=== PATIENT | female | born 1950 | race Caucasian/White ===

== ENCOUNTER → 2018-06-16 14:56 | Outpatient (CLI) | payer MEDICARE, OTHER, SELFPAY ==
--- NOTE | 2018-06-16 14:59 | DI.RAD.S_ITS ---
PROCEDURE: XR CHEST 2V INDICATIONS: chronic cough TECHNIQUE: 2 views of the chest were acquired. COMPARISON: [facility], , CHEST 2 VIEW, 12/06/2012, 16:40. FINDINGS: Surgical changes and devices: None. Lungs and pleura: No pleural effusions or pneumothorax. Lungs are clear. Mediastinum: Mediastinal contours are normal. Heart size is normal. Bones and chest wall: No suspicious bony abnormalities. Soft tissues appear unremarkable. IMPRESSION: No acute cardiopulmonary pathology. Dictated by: Teto Merino M.D. on 06/16/2018 at 15:15 Approved by: Teto Merino M.D. on 06/16/2018 at 15:16
== END ==
PROVIDERS: PCP Family Medicine; Visit Provider Internal Medicine
DX: R05 Cough (principal)
CPT/HCPCS: 71046

== ENCOUNTER → 2018-06-24 10:22 | Outpatient (CLI) | payer MEDICARE, OTHER, SELFPAY ==
[2018-06-24 11:44] LABS: Add Manual Diff / Slide Review NO; Basophils Percent Auto 0.2 % (0-2); Eosinophils Percent Auto 3.2 % (2-4); Hematocrit 41.8 % (36-46); Hemoglobin 14.5 g/dL (12.0-16.0); Lymphocytes Percent Auto 32.1 % (25-40); Mean Corpuscular HGB Conc 34.7 % (30-36); Mean Corpuscular Hemoglobin 31.1 PG (26-34); Mean Corpuscular Volume 89.6 fL (80-100); Monocytes Percent Auto 8.2 % (3-14); Neutrophils Absolute Auto 2500 /uL (3000-5900); Neutrophils Percent Auto 56.3 % (50-75); Platelet Count 214 X10^3/uL (150-400); Red Blood Cell Count 4.67 X10^6/uL (4.0-5.2); Red Cell Distribution Width 13.3 % (11.6-14.8); White Blood Cell Count 4.4 X10^3/uL (4.5-11.0)
[2018-06-24 12:15] LABS: Alanine Aminotransferase 51 IU/L (9-52); Albumin 4.3 g/dL (3.5-5.0); Albumin Globulin Ratio 1.7 (1.0-2.8); Alkaline Phosphatase 56 U/L (38-126); Aspartate Aminotransferase 36 IU/L (14-36); BUN Creatinine Ratio 36.7 (6-22); Bilirubin Total 0.5 mg/dL (0.2-1.3); Blood Urea Nitrogen 33 mg/dL (7-17); Calcium 9.5 mg/dL (8.4-10.2); Carbon Dioxide 31 mmol/L (22-32); Chloride 101 mmol/L (98-107); Cholesterol 168 mg/dL (140-199); Estimated Glomerular Filt Rate > 60.0 mL/min (>60); Globulin 2.5 g/dL (1.7-4.1); Glucose 92 mg/dL (80-110); HDL Cholesterol 54 mg/dL (40-60); HEMOLYSIS < 15 (0-50); LDL Cholesterol Calculated 104 mg/dL (<100); Potassium 4.9 mmol/L (3.4-5.1); Sodium 140 mmol/L (137-145); Total Protein 6.8 g/dL (6.3-8.2); Triglycerides 52 mg/dL (35-150)
[2018-06-24 12:44] LABS: TSH w/ Reflex to FT4 2.55 uIU/mL (0.47-4.68)
== END ==
PROVIDERS: PCP Family Medicine; Visit Provider Family Medicine
DX: Z00.00 Encounter for general adult medical examination without abnormal findings (principal)
CPT/HCPCS: 36415; 80053; 80061; 84443; 85025

== ENCOUNTER → 2018-07-05 11:44 | Outpatient (CLI) | payer MEDICARE, OTHER, SELFPAY ==
--- NOTE | 2018-07-05 | DI.MG.S_ITS ---
BILATERAL DIGITAL SCREENING MAMMOGRAM 3D/2D WITH CAD: 07/05/2018 CLINICAL: Routine screening. Family history of breast cancer. Comparison is made to exams dated: 06/18/2017 mammogram, 08/04/2014 mammogram, and 08/03/2013 mammogram - [facility]. There are scattered fibroglandular elements in both breasts. Current study was also evaluated with a Computer Aided Detection (CAD) system. There are benign calcifications in the left breast. No significant masses, calcifications, or other findings are seen in either breast. There has been no significant interval change. IMPRESSION: BENIGN There is no mammographic evidence of malignancy. A 1 year screening mammogram is recommended. This exam was interpreted at Station ID: [id number]. NOTE: For mammograms, a report in lay terms will be sent to the patient. Approximately 15% of breast malignancies will not be visualized mammographically. In the management of a palpable breast mass, a negative mammogram must not discourage biopsy of a clinically suspicious lesion. Electronically Signed By: Carlitos otero/kaley:07/05/2018 20:49:51 letter sent: Normal Exam ACR BI-RADS Category 2: Benign Finding(s) 3342F
== END ==
PROVIDERS: PCP Family Medicine; Visit Provider Family Medicine
DX: Z12.31 Encounter for screening mammogram for malignant neoplasm of breast (principal); Z80.3 Family history of malignant neoplasm of breast
CPT/HCPCS: 77063; 77067

== ENCOUNTER → 2019-03-15 09:48 | Outpatient (CLI) | payer MEDICARE, OTHER, SELFPAY ==
[2019-03-15 11:34] LABS: Alanine Aminotransferase 65 IU/L (9-52); Albumin 4.1 g/dL (3.5-5.0); Albumin Globulin Ratio 1.7 (1.0-2.8); Alkaline Phosphatase 55 U/L (38-126); Aspartate Aminotransferase 46 IU/L (14-36); BUN Creatinine Ratio 36.3 (6-22); Bilirubin Total 0.4 mg/dL (0.2-1.3); Blood Urea Nitrogen 29 mg/dL (7-17); Calcium 9.3 mg/dL (8.4-10.2); Carbon Dioxide 28 mmol/L (22-32); Chloride 101 mmol/L (98-107); Cholesterol 124 mg/dL (140-199); Estimated Glomerular Filt Rate > 60.0 mL/min (>60); Globulin 2.4 g/dL (1.7-4.1); Glucose 80 mg/dL (80-110); HDL Cholesterol 39 mg/dL (40-60); HEMOLYSIS < 15 (0-50); LDL Cholesterol Calculated 77 mg/dL (<100); Potassium 4.4 mmol/L (3.4-5.1); Sodium 137 mmol/L (137-145); Total Protein 6.5 g/dL (6.3-8.2); Triglycerides 41 mg/dL (35-150)
[2019-03-15 11:41] LABS: Add Manual Diff / Slide Review NO; Basophils Absolute Auto 0 /uL (0-100); Basophils Percent Auto 0.3 % (0-2); Eosinophils Absolute Auto 300 /uL (0-450); Eosinophils Percent Auto 7.6 % (2-4); Hematocrit 42.2 % (36-46); Hemoglobin 14.3 g/dL (12.0-16.0); Lymphocytes Absolute Auto 1300 /uL (1100-4500); Lymphocytes Percent Auto 37.5 % (25-40); Mean Corpuscular HGB Conc 33.9 % (30-36); Mean Corpuscular Hemoglobin 30.3 PG (26-34); Mean Corpuscular Volume 89.5 fL (80-100); Monocytes Absolute Auto 300 /uL (0-900); Monocytes Percent Auto 9.2 % (3-14); Neutrophils Absolute Auto 1500 /uL (1500-7000); Neutrophils Percent Auto 45.4 % (50-75); Platelet Count 195 X10^3/uL (150-400); Red Blood Cell Count 4.71 X10^6/uL (4.0-5.2); Red Cell Distribution Width 13.6 % (11.6-14.8); White Blood Cell Count 3.4 X10^3/uL (4.5-11.0)
[2019-03-15 12:09] LABS: TSH w/ Reflex to FT4 1.63 uIU/mL (0.47-4.68)
== END ==
PROVIDERS: PCP Family Medicine; Visit Provider Family Medicine
DX: I10 Essential (primary) hypertension (principal); Z00.00 Encounter for general adult medical examination without abnormal findings; Z13.6 Encounter for screening for cardiovascular disorders
CPT/HCPCS: 36415; 80053; 80061; 84443; 85025

== ENCOUNTER → 2019-07-07 10:49 | Outpatient (CLI) | payer MEDICARE, OTHER, SELFPAY ==
--- NOTE | 2019-07-07 | DI.MG.S_ITS ---
BILATERAL DIGITAL SCREENING MAMMOGRAM 3D/2D WITH CAD: 07/07/2019 CLINICAL: Routine screening. Family history of breast cancer. Comparison is made to exams dated: 07/05/2018 mammogram, 06/24/2017 mammogram, 06/18/2017 mammogram, and 08/04/2014 mammogram - [facility]. There are scattered fibroglandular elements in both breasts. Current study was also evaluated with a Computer Aided Detection (CAD) system. There are benign calcifications in the left breast. No significant masses, calcifications, or other findings are seen in either breast. There has been no significant interval change. IMPRESSION: There is no mammographic evidence of malignancy. A 1 year screening mammogram is recommended. This exam was interpreted at Station ID: [id number]. NOTE: For mammograms, a report in lay terms will be sent to the patient. Approximately 15% of breast malignancies will not be visualized mammographically. In the management of a palpable breast mass, a negative mammogram must not discourage biopsy of a clinically suspicious lesion. Electronically Signed By: Danish pratt/kaley:07/07/2019 11:21:08 letter sent: Normal Exam ACR BI-RADS Category 2: Benign Finding(s) 3342F
== END ==
PROVIDERS: PCP Family Medicine; Visit Provider Family Medicine
DX: Z12.31 Encounter for screening mammogram for malignant neoplasm of breast (principal); Z80.3 Family history of malignant neoplasm of breast
CPT/HCPCS: 77063; 77067

== ENCOUNTER → 2020-05-11 09:35 | Outpatient (CLI) | payer MEDICARE, OTHER, SELFPAY ==
[2020-05-11 10:38] LABS: Add Manual Diff / Slide Review NO; Basophils Absolute Auto 0 /uL (0-100); Basophils Percent Auto 0.3 % (0-2); Eosinophils Absolute Auto 100 /uL (0-450); Eosinophils Percent Auto 3.4 % (2-4); Hematocrit 42.7 % (36-46); Hemoglobin 14.4 g/dL (12.0-16.0); Lymphocytes Absolute Auto 1200 /uL (1100-4500); Lymphocytes Percent Auto 30.3 % (25-40); Mean Corpuscular HGB Conc 33.8 % (30-36); Mean Corpuscular Hemoglobin 30.4 PG (26-34); Mean Corpuscular Volume 89.9 fL (80-100); Monocytes Absolute Auto 300 /uL (0-900); Monocytes Percent Auto 8.3 % (3-14); Neutrophils Absolute Auto 2400 /uL (1500-7000); Neutrophils Percent Auto 57.7 % (50-75); Platelet Count 214 X10^3/uL (150-400); Red Blood Cell Count 4.74 X10^6/uL (4.0-5.2); Red Cell Distribution Width 13.7 % (11.6-14.8); White Blood Cell Count 4.1 X10^3/uL (4.5-11.0)
[2020-05-11 10:54] LABS: Alanine Aminotransferase 95 IU/L (<35); Albumin 4.3 g/dL (3.5-5.0); Albumin Globulin Ratio 1.9 (1.0-2.8); Alkaline Phosphatase 47 U/L (38-126); Aspartate Aminotransferase 51 IU/L (14-36); BUN Creatinine Ratio 26.6 (6-22); Bilirubin Total 0.7 mg/dL (0.2-1.3); Blood Urea Nitrogen 21 mg/dL (7-17); Calcium 9.7 mg/dL (8.4-10.2); Carbon Dioxide 30 mmol/L (22-32); Chloride 105 mmol/L (98-107); Cholesterol 133 mg/dL (140-199); Estimated Glomerular Filt Rate > 60.0 mL/min (>60); Globulin 2.3 g/dL (1.7-4.1); Glucose 91 mg/dL (80-110); HDL Cholesterol 41 mg/dL (40-60); HEMOLYSIS < 15 (0-50); LDL Cholesterol Calculated 84 mg/dL (<100); Potassium 4.1 mmol/L (3.4-5.1); Sodium 139 mmol/L (137-145); Total Protein 6.6 g/dL (6.3-8.2); Triglycerides 40 mg/dL (35-150)
== END ==
PROVIDERS: PCP Family Medicine; Referring Provider Family Medicine; Visit Provider Family Medicine
DX: E78.00 Pure hypercholesterolemia, unspecified (principal); N39.41 Urge incontinence
CPT/HCPCS: 36415; 80053; 80061; 84443; 85025

== ENCOUNTER → 2020-07-13 10:45 | Outpatient (CLI) | payer MEDICARE, OTHER, SELFPAY ==
--- NOTE | 2020-07-13 11:00 | DI.MG.S_ITS ---
Patient Name: JENNIFER URIAS date: 1950 Sex: F Attending Physician: Tavo Indications: Date: 07/13/2020 10:53 At the request of: ROEL ALVARADO Procedure: MM screening mammo BI BILATERAL DIGITAL SCREENING MAMMOGRAM 3D/2D WITH CAD: 07/13/2020 CLINICAL: Routine screening. Family history of breast cancer. Comparison is made to exams dated: 07/07/2019 mammogram, 07/05/2018 mammogram, and 06/18/2017 mammogram - [facility]. There are scattered fibroglandular elements in both breasts. Current study was also evaluated with a Computer Aided Detection (CAD) system. There are benign calcifications in the left breast. No significant masses, calcifications, or other findings are seen in either breast. There has been no significant interval change. IMPRESSION: BENIGN There is no mammographic evidence of malignancy. A 1 year screening mammogram is recommended. This exam was interpreted at Station ID: [id number]. NOTE: For mammograms, a report in lay terms will be sent to the patient. Approximately 15% of breast malignancies will not be visualized mammographically. In the management of a palpable breast mass, a negative mammogram must not discourage biopsy of a clinically suspicious lesion. Electronically Signed By: Danish pratt/kaley:07/13/2020 12:00:40 letter sent: Normal Exam ACR BI-RADS Category 2: Benign Finding(s) 3342F
== END ==
PROVIDERS: PCP Family Medicine; Referring Provider Family Medicine; Visit Provider Family Medicine
DX: Z12.31 Encounter for screening mammogram for malignant neoplasm of breast (principal); Z80.3 Family history of malignant neoplasm of breast
CPT/HCPCS: 77063; 77067

== ENCOUNTER → 2020-08-10 09:04 | Outpatient (CLI) | payer MEDICARE, OTHER, SELFPAY ==
--- NOTE | 2020-08-10 09:06 | DI.US.S_ITS ---
PROCEDURE: US ABDOMEN COMPLETE INDICATIONS: ELEVATED LIVER FUNCTION TESTS TECHNIQUE: Real-time scanning was performed of the abdominal and retroperitoneal organs, with image documentation. COMPARISON: None. FINDINGS: Liver: Liver is normal in size and homogeneous in echotexture. Gallbladder: No findings of gallstones or sludge are seen. The gallbladder wall is not thickened, measuring 3 mm or less. No specific pericholecystic fluid is seen. The sonographic Mercedes sign is negative. Biliary ducts: Intrahepatic bile ducts are non-dilated. Extrahepatic bile duct caliber measures approximately 1 mm. Portions of the common bile duct are not well seen, secondary to bowel gas. Normal is 6-7 mm or less in diameter, or 10 mm or less post-cholecystectomy. Pancreas: Visualized portions of the pancreas are sonographically normal. Spleen: Spleen is normal in size and homogeneous in echotexture. Kidneys: Kidneys are normal in size and echotexture. Right kidney measures 10.7 cm long; left kidney measures 9.2 cm long. No hydronephrosis or nephrolithiasis. No solid masses. Multiple bilateral simple appearing renal cysts are seen. The largest on the right is seen superiorly and measures to 1 cm. Largest on the left is seen superiorly and measures up to 1.8 cm. Aorta: Visualized aorta is normal in caliber at less than 3 cm. Iliacs: Proximal common iliac arteries are normal in caliber at less than 2.5 cm. IVC: Intrahepatic inferior vena cava is patent. Miscellaneous: No free abdominal fluid. IMPRESSION: Normal appearing liver by ultrasound. The gallbladder demonstrates a normal sonographic appearance. No biliary dilatation is seen. Multiple simple appearing bilateral renal cysts are seen. Dictated by: Jj Chavez M.D. on 08/10/2020 at 9:35 Approved by: Jj Chavez M.D. on 08/10/2020 at 9:37
[2020-08-10 10:49] LABS: Erythrocyte Sedimentation Rate 2 MM/HR (0-20)
[2020-08-10 11:06] LABS: C-Reactive Protein Quant < 0.5 mg/dL (<1.0)
[2020-08-10 11:34] LABS: Ferritin 123 ng/mL (11-264)
[2020-08-11 04:37] LABS: HBsAg Screen Negative (Negative); Hepatitis A Antibody IgM Negative (Negative); Hepatitis B Core Antibody IgM Negative (Negative); Hepatitis C Antibody <0.1 s/co ratio (0.0-0.9)
[2020-08-13 12:36] LABS: ANA Screen, IFA Negative (.)
== END ==
PROVIDERS: PCP Family Medicine; Referring Provider Family Medicine; Visit Provider Family Medicine
DX: R79.89 Other specified abnormal findings of blood chemistry (principal); N28.1 Cyst of kidney, acquired
CPT/HCPCS: 36415; 76700; 80074; 82728; 85651; 86038; 86140

== ENCOUNTER → 2020-10-15 11:25 | Outpatient (CLI) | payer MEDICARE, OTHER, SELFPAY ==
[2020-10-15 13:08] LABS: COVID19 -Nasal RAPID Negative (Negative)
== END ==
PROVIDERS: PCP Family Medicine; Visit Provider Physician Assistant
DX: Z11.59 Encounter for screening for other viral diseases (principal)
CPT/HCPCS: 87635

== ENCOUNTER 2020-10-17 09:07 | Day surgery (SDC) | payer MEDICARE, OTHER, SELFPAY ==
--- NOTE | 2020-10-16 19:14 | PM.PREOP ---
Pre-operative Note COVID-19 COVID-19 status: Negative Interval Note History & Physical reviewed/Exam performed by Physician: Yes Changes to H&P: No
--- NOTE | 2020-10-16 20:09 | PM.OP.1 ---
Operative Date/Time/Diagnoses Date of procedure: 10/17/20 Time of procedure: 10:45 Procedure & Clinicians Procedure: Preoperative diagnoses: 1. Right significant nuclear sclerotic and cortical cataract. 2. Arthritis Postoperative diagnoses: 1. Cataract removed by phacoemulsification with placement of posterior chamber intraocular lens. Procedure: Phacoemulsification with posterior chamber intraocular lens implant Surgeon: Ciera Baker MD Complications: None Specimen: None Implant: [id number] Blood loss: None Anesthesia: Retrobulbar with monitored standby Description of procedure: Patient presents with a complaint of decreased vision due to cataract which is affecting activities of daily living distance and near. The patient wants surgery to improve vision. She understands the extra risk during the COVID-19 epidemic is tested negative for the virus preoperatively. She elects to proceed with surgery. She has discontinued her contacts prior to surgery. The patient was taken to the operating room and given IV sedation. A retrobulbar block consisting of 6 cc of 2% xylocaine without epinephrine mixed half and half with 0.5% Marcaine with 1 cc of hyaluronidase added is placed between the medial and lateral 1/3 of the inferior orbital rim. The eye is manually massaged for 30 sec, prepped using Betadine solution, and draped in the usual sterile fashion. Temporal approach was made, a 1 mm side-port incision was made 90? from the proposed clear corneal incision position. Phenylephrine 1.5% mixed with 1% xylocaine 0.2 cc was placed into the anterior chamber. Viscoat followed by Healon was then placed. A 2.6 mm clear incision with a 2.6 mm blade was placed. A 360 degree capsulorrhexis style capsulotomy was then performed with a cystitome needle on a Healon. Hydrodelineation and hydrodissection were performed. The phacoemulsification unit is introduced, and sculpting notice used to groove the central lens. It is then removed in chopping mode. Epi nucleus is removed with epinuclear mode and irrigation aspiration was used to remove the peripheral cortex. The posterior capsule is polished. The intraocular lens is selected, inspected, power confirmed, and placed in the posterior chamber. The wound was stromally hydrated and tested for leaks, there was none and it was left sutureless. Vigamox 0.1 cc was placed into the anterior chamber. Kenalog 0.2 cc was placed in the superior subconjunctival space. A drop of antibiotic and was placed and the eye was patched and shielded. The patient was stable and returned to the recovery room in excellent condition. Dictated by: Ciera Baker MD Copy to: [facility] Same procedure as scheduled: Yes
[2020-10-17] MEDS: PROPARACAINE 0.5% OPHTH SOL 2 DROPS EYE-OP (09:54)
[2020-10-17] MEDS: CATARACT EYE COMPOUND (10 DROPS/SYRINGE) 3 DROPS EYE-OP (09:55)
[2020-10-17 10:06] VITALS: BP 139/79; PULSE 60; RESP 16; TEMP 36.3; O2SAT 98
[2020-10-17] MEDS: MOXIFLOXACIN INJ 5 MG/ML VIAL EYE-OP (10:59)
[2020-10-17] MEDS: PHENYLEPHRINE/LIDOCAINE VIAL (OR) 0.2 ML EYE-OP (10:59)
[2020-10-17] MEDS: CHONDROIDTIN/SOD HYALURONATE 1.05 ML SYRINGE INTRAOCULA (10:59)
[2020-10-17] MEDS: HYALURONATE SODIUM 10 MG/ML SYRINGE INJ (10:59)
[2020-10-17] MEDS: ERYTHROMYCIN OPHTH 1 GM OINT 1 APPLIC EYE-RIGHT (10:59)
[2020-10-17] MEDS: TRIAMCINOLONE 50 MG/5 ML VIAL INJ (11:00)
[2020-10-17] MEDS: BALANCED SALT IRRIG SOLN NO.2 500 ML, EPINEPHrine 1 MG IRR (11:00)
[2020-10-17] MEDS: LIDOCAINE 2% 4 ML, BUPIVACAINE 0.5% (PF) 4 ML, HYALURONIDASE 150 UNIT INJ (11:00)
[2020-10-17 11:25] VITALS: BP 135/73; PULSE 58; RESP 17; TEMP 35.9; O2SAT 100
== END 2020-10-17 11:40 | disposition home or self-care (01) ==
LOC: OR 10:07
PROVIDERS: PCP Family Medicine; Referring Provider Ophthalmology; Visit Provider Ophthalmology
PROC: (CPT 66984; principal; 2020-10-17 10:45)
DX: H25.811 Combined forms of age-related cataract, right eye (principal)
CPT/HCPCS: 66984; J0171; J2704; J3301; J3470

== ENCOUNTER → 2020-10-29 09:29 | Outpatient (CLI) | payer MEDICARE, OTHER, SELFPAY ==
[2020-10-29 11:05] LABS: COVID19 -Nasal RAPID Negative (Negative)
== END ==
PROVIDERS: PCP Family Medicine; Visit Provider Physician Assistant
DX: Z01.812 Encounter for preprocedural laboratory examination (principal); Z20.828 Contact with and (suspected) exposure to other viral communicable diseases
CPT/HCPCS: 87635; C9803

== ENCOUNTER 2020-10-31 13:25 | Day surgery (SDC) | payer MEDICARE, OTHER, SELFPAY ==
--- NOTE | 2020-10-30 18:37 | PM.PREOP ---
Pre-operative Note COVID-19 COVID-19 status: Negative Interval Note History & Physical reviewed/Exam performed by Physician: Yes Changes to H&P: No
--- NOTE | 2020-10-31 08:14 | PM.OP.1 ---
Operative Date/Time/Diagnoses Date of procedure: 10/31/20 Time of procedure: 15:15 Procedure & Clinicians Procedure: Preoperative diagnoses: 1. Left Nuclear sclerotic and cortical cataract 2. Arthritis with neck pain 2. Astigmatism which is to be corrected with a toric intraocular lens implant. Postoperative diagnoses: 1. Cataract removal with phacoemulsification with toric posterior chamber intraocular lens implant placed. Procedure: Phacoemulsification with posterior chamber toric intraocular lens implant. Surgeon: Ciera Baker MD Complications: None Specimen: None Implant: [id number] axis 151, myopic target Blood loss: None Anesthesia: Retrobulbar with monitored standby Description of procedure: Patient presents with a complaint of decreased vision due to cataract which is affecting activities of daily living. The patient wants surgery to improve vision and astigmatism. She wants a computer distance target as she was wearing monovision contacts. The patient was taken to the operating room and proparacaine drops placed. Indelible ink schneider were placed at the 90 and 180 degree meridian. The patient was placed on the operating room table and given IV sedation. A retrobulbar block insert consisting of 6 cc of 2% xylocaine without epinephrine mixed half and half with 0.5% Marcaine with 1 cc of hyaluronidase added is placed between the medial and lateral 1/3 of the inferior orbital rim. The eye is manually massaged for 30 sec, prepped using Betadine solution, and draped in the usual sterile fashion. Temporal approach was made, a 1 mm side-port incision was made 90? from the proposed corneal wound. Phenylephrine 1.5% mixed with 1% xylocaine 0.2 cc was placed into the anterior chamber. Viscoat followed by Karol was then placed. A 2.6 mm clear incision with a 2.6 mm blade was placed at the 170 degree meridian. A 360 degree capsulorrhexis style capsulotomy was then performed with a cystitome needle on a Healon. Hydrodelineation and hydrodissection were performed. The phacoemulsification unit is introduced, and sculpting used to groove the central lens. It is then removed in chopping mode. Epi nucleus is removed with epinuclear mode and irrigation aspiration was used to remove the peripheral cortex. The posterior capsule is polished. The intraocular lens is selected, inspected, power confirmed, and placed in the posterior chamber at the desired meridian 151 degree. The pupil was not constricted. The wound was stromally hydrated and tested for leaks, there was none and it was left sutureless. Vigamox 0.1 cc was placed into the anterior chamber. Kenalog 0.2 cc was placed in the superior subconjunctival space. A drop of antibiotic and was placed and the eye was patched and shielded. The patient was stable and returned to the recovery room in excellent condition. Dictated by: Ciera Baker MD Copy to: [facility] Same procedure as scheduled: Yes
[2020-10-31] MEDS: PROPARACAINE 0.5% OPHTH SOL 2 DROPS EYE-OP (13:55)
[2020-10-31 14:00] VITALS: BP 123/67; PULSE 65; RESP 18; TEMP 36.5; O2SAT 100; BMI 24.7
[2020-10-31] MEDS: CATARACT EYE COMPOUND (10 DROPS/SYRINGE) 3 DROPS EYE-OP (14:00)
[2020-10-31] MEDS: PHENYLEPHRINE/LIDOCAINE VIAL (OR) 0.2 ML EYE-OP (16:24)
[2020-10-31] MEDS: MOXIFLOXACIN INJ 5 MG/ML VIAL EYE-OP (16:25)
[2020-10-31] MEDS: LIDOCAINE 2% 4 ML, BUPIVACAINE 0.5% (PF) 4 ML, HYALURONIDASE 150 UNIT INJ (16:25)
[2020-10-31] MEDS: BALANCED SALT IRRIG SOLN NO.2 500 ML, EPINEPHrine 1 MG IRR (16:26)
[2020-10-31] MEDS: HYALURONATE SODIUM 10 MG/ML SYRINGE INJ (16:26)
[2020-10-31] MEDS: CHONDROIDTIN/SOD HYALURONATE 1.05 ML SYRINGE INTRAOCULA (16:26)
[2020-10-31] MEDS: TRIAMCINOLONE 50 MG/5 ML VIAL INJ (16:26)
[2020-10-31] MEDS: ERYTHROMYCIN OPHTH 1 GM OINT 1 APPLIC EYE-LEFT (16:27)
[2020-10-31 17:05] VITALS: BP 132/81; PULSE 58; RESP 14; TEMP 36.7; O2SAT 99
== END 2020-10-31 17:10 | disposition home or self-care (01) ==
LOC: OR 13:27
PROVIDERS: PCP Family Medicine; Referring Provider Family Medicine; Visit Provider Ophthalmology
PROC: (CPT 66984; principal; 2020-10-31 15:15)
DX: H25.812 Combined forms of age-related cataract, left eye (principal); H52.202 Unspecified astigmatism, left eye
CPT/HCPCS: 66984; J0171; J2250; J3010; J3301; J3470; V2787

== ENCOUNTER → 2020-11-13 10:02 | Outpatient (CLI) | payer MEDICARE, OTHER, SELFPAY ==
[2020-11-13 12:04] LABS: Alanine Aminotransferase 80 IU/L (<35); Albumin 3.9 g/dL (3.5-5.0); Albumin Globulin Ratio 1.6 (1.0-2.8); Alkaline Phosphatase 54 U/L (38-126); Aspartate Aminotransferase 40 IU/L (14-36); Bilirubin Total 0.7 mg/dL (0.2-1.3); Bilirubin Unconjugated 0.8 mg/dL (0.0-1.1); Globulin 2.4 g/dL (1.7-4.1); HEMOLYSIS < 15 (0-50); Total Protein 6.3 g/dL (6.3-8.2)
== END ==
PROVIDERS: PCP Family Medicine; Referring Provider Family Medicine; Visit Provider Family Medicine
DX: R74.8 Abnormal levels of other serum enzymes (principal)
CPT/HCPCS: 36415; 80076

== ENCOUNTER → 2021-05-29 11:16 | Outpatient (CLI) | payer MEDICARE, OTHER, SELFPAY ==
[2021-05-29 12:08] LABS: Alanine Aminotransferase 49 IU/L (<35); Albumin 4.2 g/dL (3.5-5.0); Albumin Globulin Ratio 1.8 (1.0-2.8); Alkaline Phosphatase 55 U/L (38-126); Aspartate Aminotransferase 41 IU/L (14-36); Bilirubin Total 0.5 mg/dL (0.2-1.3); Bilirubin Unconjugated 0.5 mg/dL (0.0-1.1); Globulin 2.3 g/dL (1.7-4.1); HEMOLYSIS < 15 (0-50); Total Protein 6.5 g/dL (6.3-8.2)
== END ==
PROVIDERS: PCP Family Medicine; Referring Provider Family Medicine; Visit Provider Family Medicine
DX: R74.8 Abnormal levels of other serum enzymes (principal)
CPT/HCPCS: 36415; 80076

== ENCOUNTER → 2021-07-23 11:03 | Outpatient (CLI) | payer MEDICARE, OTHER, SELFPAY ==
--- NOTE | 2021-07-23 | DI.MG.S_ITS ---
BILATERAL DIGITAL SCREENING MAMMOGRAM 3D/2D WITH CAD: 07/23/2021 CLINICAL: Routine screening. Family history of breast cancer. Comparison is made to exams dated: 07/13/2020 mammogram, 07/07/2019 mammogram, and 07/05/2018 mammogram - [facility]. There are scattered fibroglandular elements in both breasts. Current study was also evaluated with a Computer Aided Detection (CAD) system. There are benign calcifications in the left breast. No significant masses, calcifications, or other findings are seen in either breast. There has been no significant interval change. IMPRESSION: BENIGN There is no mammographic evidence of malignancy. A 1 year screening mammogram is recommended. This exam was interpreted at Station ID: [id number]. NOTE: For mammograms, a report in lay terms will be sent to the patient. Approximately 15% of breast malignancies will not be visualized mammographically. In the management of a palpable breast mass, a negative mammogram must not discourage biopsy of a clinically suspicious lesion. Electronically Signed By: Merrill grigsby/kaley:07/23/2021 11:41:15 letter sent: Normal Exam ACR BI-RADS Category 2: Benign Finding(s) 3342F
== END ==
PROVIDERS: PCP Family Medicine; Referring Provider Family Medicine; Visit Provider Family Medicine
DX: Z12.31 Encounter for screening mammogram for malignant neoplasm of breast (principal); Z80.3 Family history of malignant neoplasm of breast
CPT/HCPCS: 77063; 77067

== ENCOUNTER 2021-11-19 11:31 | Emergency (ER) | payer MEDICARE, OTHER, SELFPAY ==
[2021-11-19] VITALS (27 sets, daily range): BP systolic 105–144; BP diastolic 52–71; PULSE 83–99; RESP 14–37; TEMP 36.7; O2SAT 79–100; BMI 28.7
[2021-11-19 13:12] LABS: COVID19 -Nasal RAPID Negative (Negative)
--- NOTE | 2021-11-19 15:06 | DI.RAD.S_ITS ---
PROCEDURE: XR CHEST 2V INDICATIONS: shortness of breath TECHNIQUE: 2 views of the chest were acquired. COMPARISON: [facility], CR, XR CHEST 2V, 06/16/2018, 14:39. FINDINGS: Surgical changes and devices: None. Lungs and pleura: Lungs are clear. No pleural effusions or pneumothorax. Mediastinum: Mediastinal contours are normal. Heart size is normal. Bones and chest wall: No suspicious bony abnormalities. Soft tissues appear unremarkable. IMPRESSION: No acute cardiopulmonary abnormalities or focal airspace disease. Dictated by: Dainsh Bhandari M.D. on 11/19/2021 at 16:00 Approved by: Danish Bhandari M.D. on 11/19/2021 at 16:01
[2021-11-19 15:36] LABS: Hematocrit 29.1 % (36-46); Hemoglobin 10.3 g/dL (12.0-16.0); Mean Corpuscular HGB Conc 35.4 % (30-36); Mean Corpuscular Hemoglobin 36.1 PG (26-34); Mean Corpuscular Volume 101.8 fL (80-100); Platelet Count 81 X10^3/uL (150-400); Red Blood Cell Count 2.86 X10^6/uL (4.0-5.2); Red Cell Distribution Width 16.2 % (11.6-14.8); White Blood Cell Count 7.7 X10^3/uL (4.5-11.0)
[2021-11-19 15:37] LABS: Alanine Aminotransferase 97 IU/L (<35); Albumin Globulin Ratio 1.3 (1.0-2.8); Alkaline Phosphatase 79 U/L (38-126); Aspartate Aminotransferase 94 IU/L (14-36); BUN Creatinine Ratio 27.8 (6-22); Bilirubin Total 1.5 mg/dL (0.2-1.3); Blood Urea Nitrogen 22 mg/dL (7-17); Carbon Dioxide 25 mmol/L (22-32); Chloride 94 mmol/L (98-107); Estimated Glomerular Filt Rate > 60.0 mL/min (>60); Globulin 3.1 g/dL (1.7-4.1); Glucose 127 mg/dL (80-110); HEMOLYSIS < 15 (0-50); Potassium 3.5 mmol/L (3.4-5.1); Sodium 128 mmol/L (137-145); Total Protein 7.1 g/dL (6.3-8.2)
[2021-11-19 15:38] LABS: Add Manual Diff / Slide Review YES
[2021-11-19 15:38] LABS: Creatine Kinase 254 U/L (30-135); Lactate (Lactic Acid) 1.4 mmol/L (0.7-2.1); Lipase 35 U/L (23-300)
[2021-11-19 15:49] LABS: NT-proBNP (BNP-Adult 18+) 2960 pg/mL (<125)
[2021-11-19 15:53] LABS: CKMB % Relative Index 0.8 % (1.5-5.0); Creatine Kinase MB 2.13 ng/mL (<2.37)
--- NOTE | 2021-11-19 16:00 | ED_ITS ---
HPI - General Adult <Lashno Morocho MD - Last Filed: 12/08/21 13:32> General Chief complaint: Dizziness Stated complaint: Trouble walking, dizzy Time Seen by Provider: 11/19/21 16:00 Source: patient Mode of arrival: Ambulatory History of Present Illness HPI narrative: 71-year-old woman without significant medical history went to bed last night and became significantly weak with a bit of shortness of breath. She complains that her legs were so weak she had difficulty walking to the bathroom. When she did get to the bathroom she ended up slumping to the floor and spent the majority of the evening on the floor in the bathroom still complaining of mild dyspnea weakness enough that her legs would not hold her up but not noticing chest pain or palpitations. Her friend insisted that she come into the emergency room today and she notes that she has not had any recent fevers, cough, chills. She has had no exertional dyspnea, no orthopnea, no lower extremity edema no recent syncopal episodes. She has had no vomiting, diarrhea abdominal pain. No focal neurologic findings and no headaches. Related Data Home Medications Medication Instructions Recorded Confirmed mirabegron 50 mg tablet,extended 50 mg PO BEDTIME 11/19/21 11/25/21 release 24 hr (Myrbetriq) colchicine 0.6 mg tablet 0.6 mg PO BID 11/25/21 11/25/21 cyclobenzaprine 10 mg tablet 10 mg PO BEDTIME 11/25/21 11/25/21 famotidine 20 mg tablet 20 mg PO BID 11/25/21 11/25/21 Previous Rx's Medication Instructions Recorded ibuprofen 800 mg tablet 800 mg PO TID #90 tab 11/29/21 Allergies Allergy/AdvReac Type Severity Reaction Status Date / Time No Known Drug Allergies Allergy Verified 11/25/21 10:35 Review of Systems <Lashon Morocho MD - Last Filed: 12/08/21 13:32> Review of Systems Narrative: Remainder of complete review of systems is otherwise unremarkable except for that included in the HPI. Patient History <Lashon Morocho MD - Last Filed: 12/08/21 13:32> Medical History (Updated 12/05/21 @ 00:01 by ) Chicken pox (~1957) History of urinary incontinence (~1991) Measles (~1953) Osteoarthritis (~1999) Plantar warts (~1960) Vision disorder Surgical History (Updated 11/27/21 @ 16:50 by Stephon Ferguson MD) Anesthesia History of tonsillectomy (~1953) Status post arthroscopy (~1991) Status post breast reduction Family History Father Cancer Grandmother Cancer Mother Age: 99 Mental health problem Macular degeneration Grandfather Heart disease Grandmother Stroke Family/Other Ovarian cancer Colon cancer Social History marital status: household members: none Smoking Status: Never smoker alcohol intake: current substance use type: does not use Smoking Status: Never smoker alcohol intake frequency: 0-2 drinks per day Substance Use Type: does not use Exam <Lashon Morocho MD - Last Filed: 12/08/21 13:32> Initial Vital Signs Initial Vital Signs: Vital Signs Temperature 98.1 F 11/19/21 11:50 Pulse Rate 99 H 11/19/21 11:50 Respiratory Rate 14 11/19/21 11:50 Blood Pressure 119/67 11/19/21 11:50 Pulse Oximetry 100 11/19/21 11:50 General: Healthy appearing, in no acute distress. Able to give a complete and coherent history. Well-nourished well-developed HEENT: Moist mucous membranes, normal sclera with reactive pupils, Neck: No JVD, supple Respiratory: Lungs are clear to auscultation, no wheezing no rales no rhonchi. Full and symmetrical air movement Cardiac: Regular rate and rhythm no murmurs no bruits Abdomen: Soft, nontender, good bowel tones, no flank pain Skin: Warm and dry, no rashes Neurologic: Grossly neurologically intact with no obvious asymmetries or abnormalities Extremities: No trauma, well perfused Psych: Cooperative, appropriate insight and affect <Edward Adams DO - Last Filed: 11/23/21 18:06> Initial Vital Signs Initial Vital Signs: Vital Signs Temperature 98.1 F 11/19/21 11:50 Pulse Rate 99 H 11/19/21 11:50 Respiratory Rate 14 11/19/21 11:50 Blood Pressure 119/67 11/19/21 11:50 Pulse Oximetry 100 11/19/21 11:50 <Donovan Nazario DO - Last Filed: 11/20/21 18:16> Initial Vital Signs Initial Vital Signs: Vital Signs Temperature 98.1 F 11/19/21 11:50 Pulse Rate 99 H 11/19/21 11:50 Respiratory Rate 14 11/19/21 11:50 Blood Pressure 119/67 11/19/21 11:50 Pulse Oximetry 100 11/19/21 11:50 Course <Lashon Morocho MD - Last Filed: 12/08/21 13:32> Orders Ordered: Discontinued Medications Aspirin (Aspirin 81 Mg Chew Tab) 324 mg PO NOW ONE Stop: 11/19/21 18:28 Last Admin: 11/19/21 18:39 Dose: 324 mg Documented by: BETTINA Furosemide (Furosemide 40 Mg/4 Ml Vial) 40 mg IV NOW ONE Stop: 11/19/21 19:42 Last Admin: 11/19/21 19:50 Dose: 40 mg Documented by: BETTINA Heparin Sodium (Porcine) (Heparin 5,000 Unit/Ml Vial) 5,000 unit IV NOW ONE Stop: 11/19/21 15:58 Last Admin: 11/19/21 16:09 Dose: 5,000 unit Documented by: BETTINA Heparin Sodium/Dextrose (Heparin Drip) 25,000 unit in 500 mls @ 17.636 mls/hr IV CONT KELSI; Protocol Last Admin: 11/20/21 15:59 Dose: 12.66 units/kg/hr, 18.6 mls/hr Documented by: Titration: 11/20/21 15:59 Dose: 12.66 units/kg/hr, 18.6 mls/hr Documented by: Titration: 11/20/21 05:03 Dose: 12.66 units/kg/hr, 18.6 mls/hr Documented by: Admin: 11/19/21 16:13 Dose: 12 units/kg/hr, 17.636 mls/hr Documented by: BETTINA Nitroglycerin (Nitroglycerin) 50 mg in 250 mls @ 4.5 mls/hr IV TITRATE KELSI; Protocol Last Titration: 11/20/21 16:31 Dose: 20 mcg/min, 6 mls/hr Documented by: Titration: 11/20/21 16:31 Dose: 66.67 mcg/min, 20 mls/hr Documented by: Admin: 11/20/21 16:15 Dose: 15 mcg/min, 4.5 mls/hr Documented by: BHAVESH Ketorolac Tromethamine (Ketorolac 30 Mg/Ml Vial) 15 mg IV NOW ONE Stop: 11/20/21 16:01 Last Admin: 11/20/21 16:03 Dose: 15 mg Documented by: BHAVESH Nitroglycerin (Nitroglycerin 0.4 Mg Sl Tab) 0.4 mg SL [id number] PRN PRN Reason: Chest Pain Last Admin: 11/20/21 16:05 Dose: 0.4 mg Documented by: Admin: 11/20/21 15:55 Dose: 0.4 mg Documented by: Admin: 11/20/21 15:48 Dose: 0.4 mg Documented by: BHAVESH Vital Signs Vital signs: Vital Signs - 8 hr 11/20/21 10:30 11/20/21 11:00 11/20/21 11:09 Pulse Rate 95 H 97 H 100 H Respiratory Rate 33 H 30 H 32 H Blood Pressure 107/54 L 142/58 H Pulse Oximetry 93 96 97 11/20/21 11:30 11/20/21 12:00 11/20/21 12:30 Pulse Rate 91 H 98 H 99 H Respiratory Rate 28 H 33 H 46 H Blood Pressure 121/57 L 113/62 105/62 Pulse Oximetry 95 94 95 11/20/21 13:00 11/20/21 13:01 11/20/21 13:07 Pulse Rate 103 H 111 H Respiratory Rate 37 H 39 H Blood Pressure 110/83 114/57 L Pulse Oximetry 93 95 11/20/21 13:30 11/20/21 14:00 11/20/21 15:00 Pulse Rate 98 H 95 H 93 H Respiratory Rate 31 H 41 H 21 Blood Pressure 117/57 L Pulse Oximetry 96 91 11/20/21 15:05 11/20/21 15:10 11/20/21 15:15 Pulse Rate 99 H 97 H 86 Respiratory Rate 37 H 31 H 26 H Blood Pressure Pulse Oximetry 94 93 93 11/20/21 15:20 11/20/21 15:25 11/20/21 15:30 Pulse Rate 87 86 91 H Respiratory Rate 26 H 27 H 20 Blood Pressure Pulse Oximetry 95 94 94 11/20/21 15:35 11/20/21 15:40 11/20/21 15:45 Pulse Rate 93 H 90 102 H Respiratory Rate 31 H 28 H 19 Blood Pressure 113/67 Pulse Oximetry 94 95 96 11/20/21 15:48 11/20/21 15:50 11/20/21 15:55 Pulse Rate 104 H 101 H 105 H Respiratory Rate 27 H 29 H Blood Pressure 113/78 108/56 L 108/56 L Pulse Oximetry 94 92 11/20/21 15:56 11/20/21 15:58 11/20/21 16:00 Pulse Rate 103 H 103 H Respiratory Rate 39 H 37 H 30 H Blood Pressure 96/55 L 98/49 L Pulse Oximetry 87 L 91 92 11/20/21 16:04 11/20/21 16:05 11/20/21 16:10 Pulse Rate 103 H 102 H 102 H Respiratory Rate 31 H 29 H 31 H Blood Pressure 101/50 L 98/50 L 107/55 L Pulse Oximetry 92 93 93 11/20/21 16:15 11/20/21 16:16 11/20/21 16:18 Pulse Rate 101 H 102 H 101 H Respiratory Rate 26 H 25 H 27 H Blood Pressure 106/55 L Pulse Oximetry 94 94 95 11/20/21 16:20 11/20/21 16:22 11/20/21 16:24 Pulse Rate 100 H 100 H 99 H Respiratory Rate 26 H 27 H 32 H Blood Pressure 88/55 L 91/47 L Pulse Oximetry 95 96 96 11/20/21 16:25 11/20/21 16:26 11/20/21 16:28 Pulse Rate 100 H 102 H 101 H Respiratory Rate 30 H 29 H 28 H Blood Pressure 92/53 L Pulse Oximetry 97 97 96 11/20/21 16:30 11/20/21 16:32 11/20/21 16:34 Pulse Rate 99 H 101 H 100 H Respiratory Rate 24 31 H 30 H Blood Pressure 98/49 L Pulse Oximetry 95 95 96 11/20/21 16:35 11/20/21 16:36 11/20/21 16:38 Pulse Rate 102 H 101 H 101 H Respiratory Rate 32 H 32 H 21 Blood Pressure 92/52 L Pulse Oximetry 95 96 95 11/20/21 16:40 11/20/21 16:42 Pulse Rate 100 H 98 H Respiratory Rate 33 H 30 H Blood Pressure 93/55 L Pulse Oximetry 95 94 <Edward Adams DO - Last Filed: 11/23/21 18:06> Orders Ordered: Discontinued Medications Aspirin (Aspirin 81 Mg Chew Tab) 324 mg PO NOW ONE Stop: 11/19/21 18:28 Last Admin: 11/19/21 18:39 Dose: 324 mg Documented by: BETTINA Furosemide (Furosemide 40 Mg/4 Ml Vial) 40 mg IV NOW ONE Stop: 11/19/21 19:42 Last Admin: 11/19/21 19:50 Dose: 40 mg Documented by: BETTINA Heparin Sodium (Porcine) (Heparin 5,000 Unit/Ml Vial) 5,000 unit IV NOW ONE Stop: 11/19/21 15:58 Last Admin: 11/19/21 16:09 Dose: 5,000 unit Documented by: BETTINA Heparin Sodium/Dextrose (Heparin Drip) 25,000 unit in 500 mls @ 17.636 mls/hr IV CONT KELSI; Protocol Last Admin: 11/20/21 15:59 Dose: 12.66 units/kg/hr, 18.6 mls/hr Documented by: Titration: 11/20/21 15:59 Dose: 12.66 units/kg/hr, 18.6 mls/hr Documented by: Titration: 11/20/21 05:03 Dose: 12.66 units/kg/hr, 18.6 mls/hr Documented by: Admin: 11/19/21 16:13 Dose: 12 units/kg/hr, 17.636 mls/hr Documented by: BETTINA Nitroglycerin (Nitroglycerin) 50 mg in 250 mls @ 4.5 mls/hr IV TITRATE KELSI; Protocol Last Titration: 11/20/21 16:31 Dose: 20 mcg/min, 6 mls/hr Documented by: Titration: 11/20/21 16:31 Dose: 66.67 mcg/min, 20 mls/hr Documented by: Admin: 11/20/21 16:15 Dose: 15 mcg/min, 4.5 mls/hr Documented by: BHAVESH Ketorolac Tromethamine (Ketorolac 30 Mg/Ml Vial) 15 mg IV NOW ONE Stop: 11/20/21 16:01 Last Admin: 11/20/21 16:03 Dose: 15 mg Documented by: BHAVESH Nitroglycerin (Nitroglycerin 0.4 Mg Sl Tab) 0.4 mg SL [id number] PRN PRN Reason: Chest Pain Last Admin: 11/20/21 16:05 Dose: 0.4 mg Documented by: Admin: 11/20/21 15:55 Dose: 0.4 mg Documented by: Admin: 11/20/21 15:48 Dose: 0.4 mg Documented by: BHAVESH Vital Signs Vital signs: Vital Signs - 8 hr 11/20/21 10:30 11/20/21 11:00 11/20/21 11:09 Pulse Rate 95 H 97 H 100 H Respiratory Rate 33 H 30 H 32 H Blood Pressure 107/54 L 142/58 H Pulse Oximetry 93 96 97 11/20/21 11:30 11/20/21 12:00 11/20/21 12:30 Pulse Rate 91 H 98 H 99 H Respiratory Rate 28 H 33 H 46 H Blood Pressure 121/57 L 113/62 105/62 Pulse Oximetry 95 94 95 11/20/21 13:00 11/20/21 13:01 11/20/21 13:07 Pulse Rate 103 H 111 H Respiratory Rate 37 H 39 H Blood Pressure 110/83 114/57 L Pulse Oximetry 93 95 11/20/21 13:30 11/20/21 14:00 11/20/21 15:00 Pulse Rate 98 H 95 H 93 H Respiratory Rate 31 H 41 H 21 Blood Pressure 117/57 L Pulse Oximetry 96 91 11/20/21 15:05 11/20/21 15:10 11/20/21 15:15 Pulse Rate 99 H 97 H 86 Respiratory Rate 37 H 31 H 26 H Blood Pressure Pulse Oximetry 94 93 93 11/20/21 15:20 11/20/21 15:25 11/20/21 15:30 Pulse Rate 87 86 91 H Respiratory Rate 26 H 27 H 20 Blood Pressure Pulse Oximetry 95 94 94 11/20/21 15:35 11/20/21 15:40 11/20/21 15:45 Pulse Rate 93 H 90 102 H Respiratory Rate 31 H 28 H 19 Blood Pressure 113/67 Pulse Oximetry 94 95 96 11/20/21 15:48 11/20/21 15:50 11/20/21 15:55 Pulse Rate 104 H 101 H 105 H Respiratory Rate 27 H 29 H Blood Pressure 113/78 108/56 L 108/56 L Pulse Oximetry 94 92 11/20/21 15:56 11/20/21 15:58 11/20/21 16:00 Pulse Rate 103 H 103 H Respiratory Rate 39 H 37 H 30 H Blood Pressure 96/55 L 98/49 L Pulse Oximetry 87 L 91 92 11/20/21 16:04 11/20/21 16:05 11/20/21 16:10 Pulse Rate 103 H 102 H 102 H Respiratory Rate 31 H 29 H 31 H Blood Pressure 101/50 L 98/50 L 107/55 L Pulse Oximetry 92 93 93 11/20/21 16:15 11/20/21 16:16 11/20/21 16:18 Pulse Rate 101 H 102 H 101 H Respiratory Rate 26 H 25 H 27 H Blood Pressure 106/55 L Pulse Oximetry 94 94 95 11/20/21 16:20 11/20/21 16:22 11/20/21 16:24 Pulse Rate 100 H 100 H 99 H Respiratory Rate 26 H 27 H 32 H Blood Pressure 88/55 L 91/47 L Pulse Oximetry 95 96 96 11/20/21 16:25 11/20/21 16:26 11/20/21 16:28 Pulse Rate 100 H 102 H 101 H Respiratory Rate 30 H 29 H 28 H Blood Pressure 92/53 L Pulse Oximetry 97 97 96 11/20/21 16:30 11/20/21 16:32 11/20/21 16:34 Pulse Rate 99 H 101 H 100 H Respiratory Rate 24 31 H 30 H Blood Pressure 98/49 L Pulse Oximetry 95 95 96 11/20/21 16:35 11/20/21 16:36 11/20/21 16:38 Pulse Rate 102 H 101 H 101 H Respiratory Rate 32 H 32 H 21 Blood Pressure 92/52 L Pulse Oximetry 95 96 95 11/20/21 16:40 11/20/21 16:42 Pulse Rate 100 H 98 H Respiratory Rate 33 H 30 H Blood Pressure 93/55 L Pulse Oximetry 95 94 <Donovan Nazario DO - Last Filed: 11/20/21 18:16> Course Course Narrative: 0700 - (SHOSHANA) -patient received in sign-out from Dr. Adams. I performed independent history and physical exam. No significant change noted. Patient feels a bit dizzy and weak, this is how she has felt. Cardio ([facility]) has accepted, but currently no beds available Orders Ordered: Discontinued Medications Aspirin (Aspirin 81 Mg Chew Tab) 324 mg PO NOW ONE Stop: 11/19/21 18:28 Last Admin: 11/19/21 18:39 Dose: 324 mg Documented by: BETTINA Furosemide (Furosemide 40 Mg/4 Ml Vial) 40 mg IV NOW ONE Stop: 11/19/21 19:42 Last Admin: 11/19/21 19:50 Dose: 40 mg Documented by: BETTINA Heparin Sodium (Porcine) (Heparin 5,000 Unit/Ml Vial) 5,000 unit IV NOW ONE Stop: 11/19/21 15:58 Last Admin: 11/19/21 16:09 Dose: 5,000 unit Documented by: BETTINA Heparin Sodium/Dextrose (Heparin Drip) 25,000 unit in 500 mls @ 17.636 mls/hr IV CONT KELSI; Protocol Last Admin: 11/20/21 15:59 Dose: 12.66 units/kg/hr, 18.6 mls/hr Documented by: Titration: 11/20/21 15:59 Dose: 12.66 units/kg/hr, 18.6 mls/hr Documented by: Titration: 11/20/21 05:03 Dose: 12.66 units/kg/hr, 18.6 mls/hr Documented by: Admin: 11/19/21 16:13 Dose: 12 units/kg/hr, 17.636 mls/hr Documented by: BETTINA Nitroglycerin (Nitroglycerin) 50 mg in 250 mls @ 4.5 mls/hr IV TITRATE KELSI; Protocol Last Titration: 11/20/21 16:31 Dose: 20 mcg/min, 6 mls/hr Documented by: Titration: 11/20/21 16:31 Dose: 66.67 mcg/min, 20 mls/hr Documented by: Admin: 11/20/21 16:15 Dose: 15 mcg/min, 4.5 mls/hr Documented by: BHAVESH Ketorolac Tromethamine (Ketorolac 30 Mg/Ml Vial) 15 mg IV NOW ONE Stop: 11/20/21 16:01 Last Admin: 11/20/21 16:03 Dose: 15 mg Documented by: BHAVESH Nitroglycerin (Nitroglycerin 0.4 Mg Sl Tab) 0.4 mg SL [id number] PRN PRN Reason: Chest Pain Last Admin: 11/20/21 16:05 Dose: 0.4 mg Documented by: Admin: 11/20/21 15:55 Dose: 0.4 mg Documented by: Admin: 11/20/21 15:48 Dose: 0.4 mg Documented by: BHAVESH Reevaluation(s) Reevaluation #1: Called to see patient, now having chest pain which she describes as pressure and squeezing, she is now having some shortness of breath. Nitro, repeat EKG ordered This EKG continues to no widespread as T changes with probable MN depressions. Patient reports 7/10 pain which drops to 4/10 after 1st nitro. Becoming SOB [facility] notified. [facility]. Time: 15:55 Vital Signs Vital signs: Vital Signs - 8 hr 11/20/21 10:30 11/20/21 11:00 11/20/21 11:09 Pulse Rate 95 H 97 H 100 H Respiratory Rate 33 H 30 H 32 H Blood Pressure 107/54 L 142/58 H Pulse Oximetry 93 96 97 11/20/21 11:30 11/20/21 12:00 11/20/21 12:30 Pulse Rate 91 H 98 H 99 H Respiratory Rate 28 H 33 H 46 H Blood Pressure 121/57 L 113/62 105/62 Pulse Oximetry 95 94 95 11/20/21 13:00 11/20/21 13:01 11/20/21 13:07 Pulse Rate 103 H 111 H Respiratory Rate 37 H 39 H Blood Pressure 110/83 114/57 L Pulse Oximetry 93 95 11/20/21 13:30 11/20/21 14:00 11/20/21 15:00 Pulse Rate 98 H 95 H 93 H Respiratory Rate 31 H 41 H 21 Blood Pressure 117/57 L Pulse Oximetry 96 91 11/20/21 15:05 11/20/21 15:10 11/20/21 15:15 Pulse Rate 99 H 97 H 86 Respiratory Rate 37 H 31 H 26 H Blood Pressure Pulse Oximetry 94 93 93 11/20/21 15:20 11/20/21 15:25 11/20/21 15:30 Pulse Rate 87 86 91 H Respiratory Rate 26 H 27 H 20 Blood Pressure Pulse Oximetry 95 94 94 11/20/21 15:35 11/20/21 15:40 11/20/21 15:45 Pulse Rate 93 H 90 102 H Respiratory Rate 31 H 28 H 19 Blood Pressure 113/67 Pulse Oximetry 94 95 96 11/20/21 15:48 11/20/21 15:50 11/20/21 15:55 Pulse Rate 104 H 101 H 105 H Respiratory Rate 27 H 29 H Blood Pressure 113/78 108/56 L 108/56 L Pulse Oximetry 94 92 11/20/21 15:56 11/20/21 15:58 11/20/21 16:00 Pulse Rate 103 H 103 H Respiratory Rate 39 H 37 H 30 H Blood Pressure 96/55 L 98/49 L Pulse Oximetry 87 L 91 92 11/20/21 16:04 11/20/21 16:05 11/20/21 16:10 Pulse Rate 103 H 102 H 102 H Respiratory Rate 31 H 29 H 31 H Blood Pressure 101/50 L 98/50 L 107/55 L Pulse Oximetry 92 93 93 11/20/21 16:15 11/20/21 16:16 11/20/21 16:18 Pulse Rate 101 H 102 H 101 H Respiratory Rate 26 H 25 H 27 H Blood Pressure 106/55 L Pulse Oximetry 94 94 95 11/20/21 16:20 11/20/21 16:22 11/20/21 16:24 Pulse Rate 100 H 100 H 99 H Respiratory Rate 26 H 27 H 32 H Blood Pressure 88/55 L 91/47 L Pulse Oximetry 95 96 96 11/20/21 16:25 11/20/21 16:26 11/20/21 16:28 Pulse Rate 100 H 102 H 101 H Respiratory Rate 30 H 29 H 28 H Blood Pressure 92/53 L Pulse Oximetry 97 97 96 11/20/21 16:30 11/20/21 16:32 11/20/21 16:34 Pulse Rate 99 H 101 H 100 H Respiratory Rate 24 31 H 30 H Blood Pressure 98/49 L Pulse Oximetry 95 95 96 11/20/21 16:35 11/20/21 16:36 11/20/21 16:38 Pulse Rate 102 H 101 H 101 H Respiratory Rate 32 H 32 H 21 Blood Pressure 92/52 L Pulse Oximetry 95 96 95 11/20/21 16:40 11/20/21 16:42 Pulse Rate 100 H 98 H Respiratory Rate 33 H 30 H Blood Pressure 93/55 L Pulse Oximetry 95 94 Medical Decision Making <Lashon Morocho MD - Last Filed: 12/08/21 13:32> Lab Data Result diagrams: 11/20/21 10:05 11/20/21 10:05 Labs: Lab Results 11/19/21 11/19/21 11/19/21 Range/Units 12:28 13:00 13:00 WBC (4.5-11.0) X10^3/uL RBC (4.0-5.2) X10^6/uL Hgb (12.0-16.0) g/dL Hct (36-46) % MCV (80-100) fL MCH (26-34) PG MCHC (30-36) % RDW (11.6-14.8) % Plt Count (150-400) X10^3/uL Neut % (Auto) Lymph % (Auto) [place] % (Auto) Eos % (Auto) Baso % (Auto) Lymph # (Auto) [place] # (Auto) Baso # (Auto) Total Counted Seg Neutrophils % (38-70) % Band Neutrophils % (3-7) % Lymphocytes % (Manual) (25-45) % Atypical Lymphs % ( - 0) % Monocytes % (Manual) (2-11) % Metamyelocytes % (-0) % Neutrophils # (Manual) ([id number]) /uL Differential Comment RBC Morphology Polychromasia Macrocytosis Smear Path Review PT (10.1-12.7) SECONDS INR (0.9-1.3) APTT (26.4-36.2) SECONDS Sodium (137-145) mmol/L Potassium (3.4-5.1) mmol/L Chloride (98-107) mmol/L Carbon Dioxide (22-32) mmol/L BUN (7-17) mg/dL Creatinine Cancelled Estimated GFR Cancelled BUN/Creatinine Ratio (6-22) Glucose (80-110) mg/dL Lactate (0.7-2.1) mmol/L Calcium (8.4-10.2) mg/dL Magnesium 2.0 (1.6-2.3) mg/dL Total Bilirubin (0.2-1.3) mg/dL AST (14-36) IU/L ALT (<35) IU/L Alkaline Phosphatase (38-126) U/L Total Creatine Kinase 254 H (30-135) U/L CK-MB (CK-2) 2.13 (<2.37) ng/mL CK-MB (CK-2) Rel Index 0.8 L (1.5-5.0) % Troponin I 0.162 H* (0.01-0.034) ng/mL NT-Pro-B Natriuret Pep 2960 H (<125) pg/mL Total Protein (6.3-8.2) g/dL Albumin (3.5-5.0) g/dL Globulin (1.7-4.1) g/dL Albumin/Globulin Ratio (1.0-2.8) Lipase 35 (23-300) U/L SARS-CoV-2 (PCR) Negative (Negative) 11/19/21 11/19/21 11/19/21 Range/Units 13:00 15:00 15:00 WBC 7.7 (4.5-11.0) X10^3/uL RBC 2.86 L (4.0-5.2) X10^6/uL Hgb 10.3 L (12.0-16.0) g/dL Hct 29.1 L (36-46) % MCV 101.8 H (80-100) fL MCH 36.1 H (26-34) PG MCHC 35.4 (30-36) % RDW 16.2 H (11.6-14.8) % Plt Count 81 L (150-400) X10^3/uL Neut % (Auto) Not Reportable Lymph % (Auto) Not Reportable [place] % (Auto) Not Reportable Eos % (Auto) Not Reportable Baso % (Auto) Not Reportable Lymph # (Auto) Not Reportable [place] # (Auto) Not Reportable Baso # (Auto) Not Reportable Total Counted 100 Seg Neutrophils % 22.0 L (38-70) % Band Neutrophils % 13.0 H (3-7) % Lymphocytes % (Manual) 10.0 L (25-45) % Atypical Lymphs % 1.0 H ( - 0) % Monocytes % (Manual) 53.0 H (2-11) % Metamyelocytes % 1.0 H (-0) % Neutrophils # (Manual) 2695 L ([id number]) /uL Differential Comment Note RBC Morphology See below Polychromasia 1+ H Macrocytosis 1+ H Smear Path Review PT (10.1-12.7) SECONDS INR (0.9-1.3) APTT (26.4-36.2) SECONDS Sodium 128 L (137-145) mmol/L Potassium 3.5 (3.4-5.1) mmol/L Chloride 94 L (98-107) mmol/L Carbon Dioxide 25 (22-32) mmol/L BUN 22 H (7-17) mg/dL Creatinine 0.79 Estimated GFR > 60.0 BUN/Creatinine Ratio 27.8 H (6-22) Glucose 127 H (80-110) mg/dL Lactate 1.4 (0.7-2.1) mmol/L Calcium 9.0 (8.4-10.2) mg/dL Magnesium (1.6-2.3) mg/dL Total Bilirubin 1.5 H (0.2-1.3) mg/dL AST 94 H (14-36) IU/L ALT 97 H (<35) IU/L Alkaline Phosphatase 79 (38-126) U/L Total Creatine Kinase (30-135) U/L CK-MB (CK-2) (<2.37) ng/mL CK-MB (CK-2) Rel Index (1.5-5.0) % Troponin I (0.01-0.034) ng/mL NT-Pro-B Natriuret Pep (<125) pg/mL Total Protein 7.1 (6.3-8.2) g/dL Albumin 4.0 (3.5-5.0) g/dL Globulin 3.1 (1.7-4.1) g/dL Albumin/Globulin Ratio 1.3 (1.0-2.8) Lipase (23-300) U/L SARS-CoV-2 (PCR) (Negative) 11/19/21 11/19/21 11/19/21 Range/Units 15:00 15:00 17:23 WBC (4.5-11.0) X10^3/uL RBC (4.0-5.2) X10^6/uL Hgb (12.0-16.0) g/dL Hct (36-46) % MCV (80-100) fL MCH (26-34) PG MCHC (30-36) % RDW (11.6-14.8) % Plt Count (150-400) X10^3/uL Neut % (Auto) Lymph % (Auto) [place] % (Auto) Eos % (Auto) Baso % (Auto) Lymph # (Auto) [place] # (Auto) Baso # (Auto) Total Counted Seg Neutrophils % (38-70) % Band Neutrophils % (3-7) % Lymphocytes % (Manual) (25-45) % Atypical Lymphs % ( - 0) % Monocytes % (Manual) (2-11) % Metamyelocytes % (-0) % Neutrophils # (Manual) ([id number]) /uL Differential Comment RBC Morphology Polychromasia Macrocytosis Smear Path Review PT 16.8 H (10.1-12.7) SECONDS INR 1.5 H (0.9-1.3) APTT 31 (26.4-36.2) SECONDS Sodium (137-145) mmol/L Potassium (3.4-5.1) mmol/L Chloride (98-107) mmol/L Carbon Dioxide (22-32) mmol/L BUN (7-17) mg/dL Creatinine Estimated GFR BUN/Creatinine Ratio (6-22) Glucose (80-110) mg/dL Lactate (0.7-2.1) mmol/L Calcium (8.4-10.2) mg/dL Magnesium (1.6-2.3) mg/dL Total Bilirubin (0.2-1.3) mg/dL AST (14-36) IU/L ALT (<35) IU/L Alkaline Phosphatase (38-126) U/L Total Creatine Kinase (30-135) U/L CK-MB (CK-2) (<2.37) ng/mL CK-MB (CK-2) Rel Index (1.5-5.0) % Troponin I 0.212 H* (0.01-0.034) ng/mL NT-Pro-B Natriuret Pep 3010 H (<125) pg/mL Total Protein (6.3-8.2) g/dL Albumin (3.5-5.0) g/dL Globulin (1.7-4.1) g/dL Albumin/Globulin Ratio (1.0-2.8) Lipase (23-300) U/L SARS-CoV-2 (PCR) (Negative) 11/19/21 11/19/21 11/20/21 Range/Units 22:30 23:30 04:33 WBC (4.5-11.0) X10^3/uL RBC (4.0-5.2) X10^6/uL Hgb (12.0-16.0) g/dL Hct (36-46) % MCV (80-100) fL MCH (26-34) PG MCHC (30-36) % RDW (11.6-14.8) % Plt Count (150-400) X10^3/uL Neut % (Auto) Lymph % (Auto) [place] % (Auto) Eos % (Auto) Baso % (Auto) Lymph # (Auto) [place] # (Auto) Baso # (Auto) Total Counted Seg Neutrophils % (38-70) % Band Neutrophils % (3-7) % Lymphocytes % (Manual) (25-45) % Atypical Lymphs % ( - 0) % Monocytes % (Manual) (2-11) % Metamyelocytes % (-0) % Neutrophils # (Manual) (2268-6123) /uL Differential Comment RBC Morphology Polychromasia Macrocytosis Smear Path Review PT (10.1-12.7) SECONDS INR (0.9-1.3) APTT 57 H D 40 H D (26.4-36.2) SECONDS Sodium (137-145) mmol/L Potassium (3.4-5.1) mmol/L Chloride (98-107) mmol/L Carbon Dioxide (22-32) mmol/L BUN (7-17) mg/dL Creatinine Estimated GFR BUN/Creatinine Ratio (6-22) Glucose (80-110) mg/dL Lactate (0.7-2.1) mmol/L Calcium (8.4-10.2) mg/dL Magnesium (1.6-2.3) mg/dL Total Bilirubin (0.2-1.3) mg/dL AST (14-36) IU/L ALT (<35) IU/L Alkaline Phosphatase (38-126) U/L Total Creatine Kinase (30-135) U/L CK-MB (CK-2) (<2.37) ng/mL CK-MB (CK-2) Rel Index (1.5-5.0) % Troponin I 2.170 H* (0.01-0.034) ng/mL NT-Pro-B Natriuret Pep (<125) pg/mL Total Protein (6.3-8.2) g/dL Albumin (3.5-5.0) g/dL Globulin (1.7-4.1) g/dL Albumin/Globulin Ratio (1.0-2.8) Lipase (23-300) U/L SARS-CoV-2 (PCR) (Negative) 11/20/21 11/20/21 11/20/21 Range/Units 04:33 10:05 10:05 WBC 7.3 (4.5-11.0) X10^3/uL RBC 2.68 L (4.0-5.2) X10^6/uL Hgb 9.7 L (12.0-16.0) g/dL Hct 27.1 L (36-46) % MCV 101.0 H (80-100) fL MCH 36.2 H (26-34) PG MCHC 35.9 (30-36) % RDW 16.3 H (11.6-14.8) % Plt Count 83 L (150-400) X10^3/uL Neut % (Auto) Not Reportable Lymph % (Auto) Not Reportable [place] % (Auto) Not Reportable Eos % (Auto) Not Reportable Baso % (Auto) Not Reportable Lymph # (Auto) Not Reportable [place] # (Auto) Not Reportable Baso # (Auto) Not Reportable Total Counted 100 Seg Neutrophils % 34.0 L D (38-70) % Band Neutrophils % 2.0 L (3-7) % Lymphocytes % (Manual) 3.0 L (25-45) % Atypical Lymphs % 8.0 H ( - 0) % Monocytes % (Manual) 53.0 H (2-11) % Metamyelocytes % (-0) % Neutrophils # (Manual) 2628 L (0902-7586) /uL Differential Comment RBC Morphology Not Reportable Polychromasia Macrocytosis 1+ H Smear Path Review PT (10.1-12.7) SECONDS INR (0.9-1.3) APTT (26.4-36.2) SECONDS Sodium 125 L (137-145) mmol/L Potassium 3.4 (3.4-5.1) mmol/L Chloride 91 L (98-107) mmol/L Carbon Dioxide 27 (22-32) mmol/L BUN 28 H (7-17) mg/dL Creatinine 1.00 Estimated GFR 54.5 L BUN/Creatinine Ratio 28.0 H (6-22) Glucose 135 H (80-110) mg/dL Lactate (0.7-2.1) mmol/L Calcium 8.5 (8.4-10.2) mg/dL Magnesium (1.6-2.3) mg/dL Total Bilirubin 1.3 (0.2-1.3) mg/dL AST 101 H (14-36) IU/L ALT 90 H (<35) IU/L Alkaline Phosphatase 108 (38-126) U/L Total Creatine Kinase 465 H D (30-135) U/L CK-MB (CK-2) 21.30 H D (<2.37) ng/mL CK-MB (CK-2) Rel Index 4.6 (1.5-5.0) % Troponin I 7.470 H* 14.000 H* (0.01-0.034) ng/mL NT-Pro-B Natriuret Pep 3790 H (<125) pg/mL Total Protein 6.5 (6.3-8.2) g/dL Albumin 3.5 (3.5-5.0) g/dL Globulin 3.0 (1.7-4.1) g/dL Albumin/Globulin Ratio 1.2 (1.0-2.8) Lipase (23-300) U/L SARS-CoV-2 (PCR) (Negative) 11/20/21 Range/Units 10:30 WBC (4.5-11.0) X10^3/uL RBC (4.0-5.2) X10^6/uL Hgb (12.0-16.0) g/dL Hct (36-46) % MCV (80-100) fL MCH (26-34) PG MCHC (30-36) % RDW (11.6-14.8) % Plt Count (150-400) X10^3/uL Neut % (Auto) Lymph % (Auto) [place] % (Auto) Eos % (Auto) Baso % (Auto) Lymph # (Auto) [place] # (Auto) Baso # (Auto) Total Counted Seg Neutrophils % (38-70) % Band Neutrophils % (3-7) % Lymphocytes % (Manual) (25-45) % Atypical Lymphs % ( - 0) % Monocytes % (Manual) (2-11) % Metamyelocytes % (-0) % Neutrophils # (Manual) (1353-2228) /uL Differential Comment RBC Morphology Polychromasia Macrocytosis Smear Path Review PT (10.1-12.7) SECONDS INR (0.9-1.3) APTT 63 H D (26.4-36.2) SECONDS Sodium (137-145) mmol/L Potassium (3.4-5.1) mmol/L Chloride (98-107) mmol/L Carbon Dioxide (22-32) mmol/L BUN (7-17) mg/dL Creatinine Estimated GFR BUN/Creatinine Ratio (6-22) Glucose (80-110) mg/dL Lactate (0.7-2.1) mmol/L Calcium (8.4-10.2) mg/dL Magnesium (1.6-2.3) mg/dL Total Bilirubin (0.2-1.3) mg/dL AST (14-36) IU/L ALT (<35) IU/L Alkaline Phosphatase (38-126) U/L Total Creatine Kinase (30-135) U/L CK-MB (CK-2) (<2.37) ng/mL CK-MB (CK-2) Rel Index (1.5-5.0) % Troponin I (0.01-0.034) ng/mL NT-Pro-B Natriuret Pep (<125) pg/mL Total Protein (6.3-8.2) g/dL Albumin (3.5-5.0) g/dL Globulin (1.7-4.1) g/dL Albumin/Globulin Ratio (1.0-2.8) Lipase (23-300) U/L SARS-CoV-2 (PCR) (Negative) Imaging Data Chest x-ray: Radiologist's Impression: FINDINGS:? ? Surgical changes and devices:? None.? ? Lungs and pleura:? Lungs are clear.? No pleural effusions or pneumothorax.? ? Mediastinum:? Mediastinal contours are normal.? Heart size is normal.? ? Bones and chest wall:? No suspicious bony abnormalities.? Soft tissues appear unremarkable.? ? IMPRESSION:? No acute cardiopulmonary abnormalities or focal airspace disease. ? Dictated by: Danish Bhandari M.D. on 11/19/2021 at 16:00 ? ? ECG Data Interpretation: He sinus rhythm at a rate of 92 Normal intervals She has slightly elevated ST segments in inferior leads consistent with early polarization. Some minor ST changes in V3 that could be suggestive of ST elevation Overall EKG is abnormal but not classic for acute STEMI MDM Narrative Medical decision making narrative: 71-year-old woman with no significant medical history last night with shortness of breath no chest pain global weakness enough that she had difficulty getting off the floor in the bathroom. Equivocal EKG and labs notable for troponin positive at 0.162 Additional lab abnormalities suggest mild anemia 18 months ago hemoglobin and hematocrit were 14.4 and 42.7 and today are 10.3 and 29.1. Patient gives no description of excessive bleeding, black stools or vomiting blood. Sodium is low at 128 total bili is elevated at 1.5 with mildly elevated AST ALT which she has been following. 4:23 when elevated troponin is reviewed, patient is re-examined. She continues to be pain-free mildly dyspneic at rest and continues to complain that her lower extremities are weak. EKG is sent to [facility] reviewed with ER doctor who will view with STEMI doctor to see if we should activate STEMI protocol. In the meantime we will begin heparin. [address] Alberto, interventionalist tube skiver at [facility] this evening. She did not feel this met STEMI equivalent. Will continue with treatment for NSTEMI and will begin looking for bed availability. <Edward Adams, DO - Last Filed: 11/23/21 18:06> Lab Data Labs: Lab Results 11/19/21 11/19/21 11/19/21 Range/Units 12:28 13:00 13:00 WBC (4.5-11.0) X10^3/uL RBC (4.0-5.2) X10^6/uL Hgb (12.0-16.0) g/dL Hct (36-46) % MCV (80-100) fL MCH (26-34) PG MCHC (30-36) % RDW (11.6-14.8) % Plt Count (150-400) X10^3/uL Neut % (Auto) Lymph % (Auto) [place] % (Auto) Eos % (Auto) Baso % (Auto) Lymph # (Auto) [place] # (Auto) Baso # (Auto) Total Counted Seg Neutrophils % (38-70) % Band Neutrophils % (3-7) % Lymphocytes % (Manual) (25-45) % Atypical Lymphs % ( - 0) % Monocytes % (Manual) (2-11) % Metamyelocytes % (-0) % Neutrophils # (Manual) (5404-3618) /uL Differential Comment RBC Morphology Polychromasia Macrocytosis Smear Path Review PT (10.1-12.7) SECONDS INR (0.9-1.3) APTT (26.4-36.2) SECONDS Sodium (137-145) mmol/L Potassium (3.4-5.1) mmol/L Chloride (98-107) mmol/L Carbon Dioxide (22-32) mmol/L BUN (7-17) mg/dL Creatinine Cancelled Estimated GFR Cancelled BUN/Creatinine Ratio (6-22) Glucose (80-110) mg/dL Lactate (0.7-2.1) mmol/L Calcium (8.4-10.2) mg/dL Magnesium 2.0 (1.6-2.3) mg/dL Total Bilirubin (0.2-1.3) mg/dL AST (14-36) IU/L ALT (<35) IU/L Alkaline Phosphatase (38-126) U/L Total Creatine Kinase 254 H (30-135) U/L CK-MB (CK-2) 2.13 (<2.37) ng/mL CK-MB (CK-2) Rel Index 0.8 L (1.5-5.0) % Troponin I 0.162 H* (0.01-0.034) ng/mL NT-Pro-B Natriuret Pep 2960 H (<125) pg/mL Total Protein (6.3-8.2) g/dL Albumin (3.5-5.0) g/dL Globulin (1.7-4.1) g/dL Albumin/Globulin Ratio (1.0-2.8) Lipase 35 (23-300) U/L SARS-CoV-2 (PCR) Negative (Negative) 11/19/21 11/19/21 11/19/21 Range/Units 13:00 15:00 15:00 WBC 7.7 (4.5-11.0) X10^3/uL RBC 2.86 L (4.0-5.2) X10^6/uL Hgb 10.3 L (12.0-16.0) g/dL Hct 29.1 L (36-46) % MCV 101.8 H (80-100) fL MCH 36.1 H (26-34) PG MCHC 35.4 (30-36) % RDW 16.2 H (11.6-14.8) % Plt Count 81 L (150-400) X10^3/uL Neut % (Auto) Not Reportable Lymph % (Auto) Not Reportable [place] % (Auto) Not Reportable Eos % (Auto) Not Reportable Baso % (Auto) Not Reportable Lymph # (Auto) Not Reportable [place] # (Auto) Not Reportable Baso # (Auto) Not Reportable Total Counted 100 Seg Neutrophils % 22.0 L (38-70) % Band Neutrophils % 13.0 H (3-7) % Lymphocytes % (Manual) 10.0 L (25-45) % Atypical Lymphs % 1.0 H ( - 0) % Monocytes % (Manual) 53.0 H (2-11) % Metamyelocytes % 1.0 H (-0) % Neutrophils # (Manual) 2695 L (1292-5378) /uL Differential Comment Note RBC Morphology See below Polychromasia 1+ H Macrocytosis 1+ H Smear Path Review PT (10.1-12.7) SECONDS INR (0.9-1.3) APTT (26.4-36.2) SECONDS Sodium 128 L (137-145) mmol/L Potassium 3.5 (3.4-5.1) mmol/L Chloride 94 L (98-107) mmol/L Carbon Dioxide 25 (22-32) mmol/L BUN 22 H (7-17) mg/dL Creatinine 0.79 Estimated GFR > 60.0 BUN/Creatinine Ratio 27.8 H (6-22) Glucose 127 H (80-110) mg/dL Lactate 1.4 (0.7-2.1) mmol/L Calcium 9.0 (8.4-10.2) mg/dL Magnesium (1.6-2.3) mg/dL Total Bilirubin 1.5 H (0.2-1.3) mg/dL AST 94 H (14-36) IU/L ALT 97 H (<35) IU/L Alkaline Phosphatase 79 (38-126) U/L Total Creatine Kinase (30-135) U/L CK-MB (CK-2) (<2.37) ng/mL CK-MB (CK-2) Rel Index (1.5-5.0) % Troponin I (0.01-0.034) ng/mL NT-Pro-B Natriuret Pep (<125) pg/mL Total Protein 7.1 (6.3-8.2) g/dL Albumin 4.0 (3.5-5.0) g/dL Globulin 3.1 (1.7-4.1) g/dL Albumin/Globulin Ratio 1.3 (1.0-2.8) Lipase (23-300) U/L SARS-CoV-2 (PCR) (Negative) 11/19/21 11/19/21 11/19/21 Range/Units 15:00 15:00 17:23 WBC (4.5-11.0) X10^3/uL RBC (4.0-5.2) X10^6/uL Hgb (12.0-16.0) g/dL Hct (36-46) % MCV (80-100) fL MCH (26-34) PG MCHC (30-36) % RDW (11.6-14.8) % Plt Count (150-400) X10^3/uL Neut % (Auto) Lymph % (Auto) [place] % (Auto) Eos % (Auto) Baso % (Auto) Lymph # (Auto) [place] # (Auto) Baso # (Auto) Total Counted Seg Neutrophils % (38-70) % Band Neutrophils % (3-7) % Lymphocytes % (Manual) (25-45) % Atypical Lymphs % ( - 0) % Monocytes % (Manual) (2-11) % Metamyelocytes % (-0) % Neutrophils # (Manual) (4013-4333) /uL Differential Comment RBC Morphology Polychromasia Macrocytosis Smear Path Review PT 16.8 H (10.1-12.7) SECONDS INR 1.5 H (0.9-1.3) APTT 31 (26.4-36.2) SECONDS Sodium (137-145) mmol/L Potassium (3.4-5.1) mmol/L Chloride (98-107) mmol/L Carbon Dioxide (22-32) mmol/L BUN (7-17) mg/dL Creatinine Estimated GFR BUN/Creatinine Ratio (6-22) Glucose (80-110) mg/dL Lactate (0.7-2.1) mmol/L Calcium (8.4-10.2) mg/dL Magnesium (1.6-2.3) mg/dL Total Bilirubin (0.2-1.3) mg/dL AST (14-36) IU/L ALT (<35) IU/L Alkaline Phosphatase (38-126) U/L Total Creatine Kinase (30-135) U/L CK-MB (CK-2) (<2.37) ng/mL CK-MB (CK-2) Rel Index (1.5-5.0) % Troponin I 0.212 H* (0.01-0.034) ng/mL NT-Pro-B Natriuret Pep 3010 H (<125) pg/mL Total Protein (6.3-8.2) g/dL Albumin (3.5-5.0) g/dL Globulin (1.7-4.1) g/dL Albumin/Globulin Ratio (1.0-2.8) Lipase (23-300) U/L SARS-CoV-2 (PCR) (Negative) 11/19/21 11/19/21 11/20/21 Range/Units 22:30 23:30 04:33 WBC (4.5-11.0) X10^3/uL RBC (4.0-5.2) X10^6/uL Hgb (12.0-16.0) g/dL Hct (36-46) % MCV (80-100) fL MCH (26-34) PG MCHC (30-36) % RDW (11.6-14.8) % Plt Count (150-400) X10^3/uL Neut % (Auto) Lymph % (Auto) [place] % (Auto) Eos % (Auto) Baso % (Auto) Lymph # (Auto) [place] # (Auto) Baso # (Auto) Total Counted Seg Neutrophils % (38-70) % Band Neutrophils % (3-7) % Lymphocytes % (Manual) (25-45) % Atypical Lymphs % ( - 0) % Monocytes % (Manual) (2-11) % Metamyelocytes % (-0) % Neutrophils # (Manual) (0290-2772) /uL Differential Comment RBC Morphology Polychromasia Macrocytosis Smear Path Review PT (10.1-12.7) SECONDS INR (0.9-1.3) APTT 57 H D 40 H D (26.4-36.2) SECONDS Sodium (137-145) mmol/L Potassium (3.4-5.1) mmol/L Chloride (98-107) mmol/L Carbon Dioxide (22-32) mmol/L BUN (7-17) mg/dL Creatinine Estimated GFR BUN/Creatinine Ratio (6-22) Glucose (80-110) mg/dL Lactate (0.7-2.1) mmol/L Calcium (8.4-10.2) mg/dL Magnesium (1.6-2.3) mg/dL Total Bilirubin (0.2-1.3) mg/dL AST (14-36) IU/L ALT (<35) IU/L Alkaline Phosphatase (38-126) U/L Total Creatine Kinase (30-135) U/L CK-MB (CK-2) (<2.37) ng/mL CK-MB (CK-2) Rel Index (1.5-5.0) % Troponin I 2.170 H* (0.01-0.034) ng/mL NT-Pro-B Natriuret Pep (<125) pg/mL Total Protein (6.3-8.2) g/dL Albumin (3.5-5.0) g/dL Globulin (1.7-4.1) g/dL Albumin/Globulin Ratio (1.0-2.8) Lipase (23-300) U/L SARS-CoV-2 (PCR) (Negative) 11/20/21 11/20/21 11/20/21 Range/Units 04:33 10:05 10:05 WBC 7.3 (4.5-11.0) X10^3/uL RBC 2.68 L (4.0-5.2) X10^6/uL Hgb 9.7 L (12.0-16.0) g/dL Hct 27.1 L (36-46) % MCV 101.0 H (80-100) fL MCH 36.2 H (26-34) PG MCHC 35.9 (30-36) % RDW 16.3 H (11.6-14.8) % Plt Count 83 L (150-400) X10^3/uL Neut % (Auto) Not Reportable Lymph % (Auto) Not Reportable [place] % (Auto) Not Reportable Eos % (Auto) Not Reportable Baso % (Auto) Not Reportable Lymph # (Auto) Not Reportable [place] # (Auto) Not Reportable Baso # (Auto) Not Reportable Total Counted 100 Seg Neutrophils % 34.0 L D (38-70) % Band Neutrophils % 2.0 L (3-7) % Lymphocytes % (Manual) 3.0 L (25-45) % Atypical Lymphs % 8.0 H ( - 0) % Monocytes % (Manual) 53.0 H (2-11) % Metamyelocytes % (-0) % Neutrophils # (Manual) 2628 L (8411-1399) /uL Differential Comment RBC Morphology Not Reportable Polychromasia Macrocytosis 1+ H Smear Path Review PT (10.1-12.7) SECONDS INR (0.9-1.3) APTT (26.4-36.2) SECONDS Sodium 125 L (137-145) mmol/L Potassium 3.4 (3.4-5.1) mmol/L Chloride 91 L (98-107) mmol/L Carbon Dioxide 27 (22-32) mmol/L BUN 28 H (7-17) mg/dL Creatinine 1.00 Estimated GFR 54.5 L BUN/Creatinine Ratio 28.0 H (6-22) Glucose 135 H (80-110) mg/dL Lactate (0.7-2.1) mmol/L Calcium 8.5 (8.4-10.2) mg/dL Magnesium (1.6-2.3) mg/dL Total Bilirubin 1.3 (0.2-1.3) mg/dL AST 101 H (14-36) IU/L ALT 90 H (<35) IU/L Alkaline Phosphatase 108 (38-126) U/L Total Creatine Kinase 465 H D (30-135) U/L CK-MB (CK-2) 21.30 H D (<2.37) ng/mL CK-MB (CK-2) Rel Index 4.6 (1.5-5.0) % Troponin I 7.470 H* 14.000 H* (0.01-0.034) ng/mL NT-Pro-B Natriuret Pep 3790 H (<125) pg/mL Total Protein 6.5 (6.3-8.2) g/dL Albumin 3.5 (3.5-5.0) g/dL Globulin 3.0 (1.7-4.1) g/dL Albumin/Globulin Ratio 1.2 (1.0-2.8) Lipase (23-300) U/L SARS-CoV-2 (PCR) (Negative) 11/20/21 Range/Units 10:30 WBC (4.5-11.0) X10^3/uL RBC (4.0-5.2) X10^6/uL Hgb (12.0-16.0) g/dL Hct (36-46) % MCV (80-100) fL MCH (26-34) PG MCHC (30-36) % RDW (11.6-14.8) % Plt Count (150-400) X10^3/uL Neut % (Auto) Lymph % (Auto) [place] % (Auto) Eos % (Auto) Baso % (Auto) Lymph # (Auto) [place] # (Auto) Baso # (Auto) Total Counted Seg Neutrophils % (38-70) % Band Neutrophils % (3-7) % Lymphocytes % (Manual) (25-45) % Atypical Lymphs % ( - 0) % Monocytes % (Manual) (2-11) % Metamyelocytes % (-0) % Neutrophils # (Manual) (1046-0284) /uL Differential Comment RBC Morphology Polychromasia Macrocytosis Smear Path Review PT (10.1-12.7) SECONDS INR (0.9-1.3) APTT 63 H D (26.4-36.2) SECONDS Sodium (137-145) mmol/L Potassium (3.4-5.1) mmol/L Chloride (98-107) mmol/L Carbon Dioxide (22-32) mmol/L BUN (7-17) mg/dL Creatinine Estimated GFR BUN/Creatinine Ratio (6-22) Glucose (80-110) mg/dL Lactate (0.7-2.1) mmol/L Calcium (8.4-10.2) mg/dL Magnesium (1.6-2.3) mg/dL Total Bilirubin (0.2-1.3) mg/dL AST (14-36) IU/L ALT (<35) IU/L Alkaline Phosphatase (38-126) U/L Total Creatine Kinase (30-135) U/L CK-MB (CK-2) (<2.37) ng/mL CK-MB (CK-2) Rel Index (1.5-5.0) % Troponin I (0.01-0.034) ng/mL NT-Pro-B Natriuret Pep (<125) pg/mL Total Protein (6.3-8.2) g/dL Albumin (3.5-5.0) g/dL Globulin (1.7-4.1) g/dL Albumin/Globulin Ratio (1.0-2.8) Lipase (23-300) U/L SARS-CoV-2 (PCR) (Negative) Imaging Data CT scan - chest: Radiologist's Impression: Nute,Daniella L??71??F??1950 ? Allergy/Adv: No Known Drug Allergies Close Chest CTA (Addendum) Navin Mitchell - 11/19/21 Chest X-Ray (Signed) Danish Bhandari - 11/19/21 Mammogram Screening (Signed) Merrill Hughes - 07/23/21 Abdomen Ultrasound (Signed) Jj Chavez - 08/10/20 Mammogram Screening (Signed) Danish Bhandari - 07/13/20 Mammogram Screening (Signed) Danish Bhandari - 07/07/19 Mammogram Screening (Signed) Carlitos Perrin - 07/05/18 Chest X-Ray (Signed) WilberTeto - 06/16/18 Launch?Image [address] [address] [address] Scan Report Addendum Patient: Daniella Chino MR#: [id number] : 1950 Acct:[id number] Age/Sex: 71 / F Date of Service: 11/19/21 Loc: ED Accession Number: [id number] ?? Procedure: CT angio chest PE protocol Ordering Provider: Edward Adams D.O. ADDENDUMThis report includes an Addendum and supersedes previous reports for this exam. ? ? ? PROCEDURE:? CT ANGIO CHEST PE PROTOCOL ? INDICATIONS:? eval for PE. ? TECHNIQUE:? After the administration of intravenous contrast, 2 mm thick sections acquired from the pulmonary apices to the posterior costophrenic angles.? 3-dimensional maximum intensity projection (MIP) coronal and sagittal reformats were then acquired through the thorax.? For radiation dose reduction, the following was used:? automated exposure control, adjustment of mA and/or kV according to patient size.? ? COMPARISON:? [facility], CR, XR CHEST 2V, 11/19/2021, 16:26. ? FINDINGS:? Image quality:? Excellent.? ? Pulmonary arteries:? Pulmonary arteries are normal in size, and demonstrate no intraluminal filling defects to suggest central pulmonary embolism.? ? Lungs and pleura:? There is dependent atelectasis bilaterally.? No acute consolidation.? No pleural effusions or pneumothorax.? Central and peripheral airways are patent.? ? Mediastinum:? Heart size is normal, with a small pericardial effusion.? No mediastinal or hilar adenopathy.? Thoracic aorta is normal in caliber and enhancement.? Esophagus is normal in caliber, without hiatal hernia.? ? Bones and chest wall:? No suspicious bony lesions.? Ribs and thoracic spine appear intact throughout.? Thyroid gland is heterogeneous in appearance with multiple small nodules, measuring to 1.2 cm in the right lobe.? No axillary or supraclavicular adenopathy.? ? Abdomen:? Visualized upper abdominal solid organs appear normal in the early arterial phase of enhancement.? ? IMPRESSION:? ? 1. No evidence of pulmonary embolism. ? 2. Dependent atelectasis in the lungs without acute consolidation. ? ? Dictated by: Navin Mitchell M.D. on 11/19/2021 at 21:13 ? ? Approved by: Navin Mitchell M.D. on 11/19/2021 at 21:21 ? ? ? ADDENDUM: ? As noted above, there are bilateral small thyroid nodules, measuring up to 1.2 cm in the right lobe.? If clinically indicated, follow-up nonemergent thyroid ultrasound may be performed for further evaluation. ? Dictated by: Navin Mitchell M.D. on 11/19/2021 at 21:33 ? ? Approved by: Navin Mitchell M.D. on 11/19/2021 at 21:33 ? Addendum Dictated By: Navin Mitchell MD Addendum Signed By: Addendum Cosigned By: DD/ /07/2137 TD/TT: 11/19/2103/07/2137 PROCEDURE:? CT ANGIO CHEST PE PROTOCOL ? INDICATIONS:? eval for PE. ? TECHNIQUE:? After the administration of intravenous contrast, 2 mm thick sections acquired from the pulmonary apices to the posterior costophrenic angles.? 3-dimensional maximum intensity projection (MIP) coronal and sagittal reformats were then acquired through the thorax.? For radiation dose reduction, the following was used:? automated exposure control, adjustment of mA and/or kV according to patient size.? ? COMPARISON:? [facility], CR, XR CHEST 2V, 11/19/2021, 16:26. ? FINDINGS:? Image quality:? Excellent.? ? Pulmonary arteries:? Pulmonary arteries are normal in size, and demonstrate no intraluminal filling defects to suggest central pulmonary embolism.? ? Lungs and pleura:? There is dependent atelectasis bilaterally.? No acute consolidation.? No pleural effusions or pneumothorax.? Central and peripheral airways are p atent.? ? Mediastinum:? Heart size is normal, with a small pericardial effusion.? No mediastinal or hilar adenopathy.? Thoracic aorta is normal in caliber and enhancement.? Esophagus is normal in caliber, without hiatal hernia.? ? Bones and chest wall:? No suspicious bony lesions.? Ribs and thoracic spine appear intact throughout.? Thyroid gland is heterogeneous in appearance with multiple small n odules, measuring to 1.2 cm in the right lobe.? No axillary or supraclavicular adenopathy.? ? Abdomen:? Visualized upper abdominal solid organs appear normal in the early arterial phase of enhancement.? ? IMPRESSION:? ? 1. No evidence of pulmonary embolism. ? 2. Dependent atelectasis in the lungs without acute consolidation. ? ? Dictated by: Navin Mitchell M.D. on 11/19/2021 at 21:13 ? ? Approved by: Navin Mitchell M.D. on 11/19/2021 at 21:21? [facility] Narrative Medical decision making narrative: 71-year-old woman with no significant medical history last night with shortness of breath no chest pain global weakness enough that she had difficulty getting off the floor in the bathroom. Equivocal EKG and labs notable for troponin positive at 0.162 Additional lab abnormalities suggest mild anemia 18 months ago hemoglobin and hematocrit were 14.4 and 42.7 and today are 10.3 and 29.1. Patient gives no description of excessive bleeding, black stools or vomiting blood. Sodium is low at 128 total bili is elevated at 1.5 with mildly elevated AST ALT which she has been following. 4:23 when elevated troponin is reviewed, patient is re-examined. She continues to be pain-free mildly dyspneic at rest and continues to complain that her lower extremities are weak. EKG is sent to [facility] reviewed with ER doctor who will view with STEMI doctor to see if we should activate STEMI protocol. In the meantime we will begin heparin. [address] Alberto, interventionalist tube skiver at [facility] this evening. She did not feel this met STEMI equivalent. Will continue with treatment for NSTEMI and will begin looking for bed availability. Dr adams: Received turned over. Reviewed patient's history and physical exam. Performed my own independent exam. Patient continues to be chest pain-free. Is not hypotensive. Not tachycardic. Has been on a heparin drip. Attempted to contact multiple facilities however there is no bed availability. I did talk with Dr. Dc with cardiology at the [facility]. He agreed that the patient did need further testing with cardiac catheterization. A CT scan was ordered since the patient was going to be here in the emergency department for an extended period of time. This CTA did not show any signs of pulmonary embolism. During her time here repeat EKGs continued to be unchanged from prior. Her troponin continues to elevate. I did recontact [facility] to update them on her rising troponins. The EKGs were sent to their facility to upload into their system. Echocardiogram ordered for this morning at the patient is still here in the emergency department. We will continue to monitor the patient an provide medical management of her non ST elevation IA until patient can be transferred to higher level of care. Care turned over to Dr. Nazario to continue to treat and disposition. <Donovan Nazario, DO - Last Filed: 11/20/21 18:16> Lab Data Labs: Lab Results 11/19/21 11/19/21 11/19/21 Range/Units 12:28 13:00 13:00 WBC (4.5-11.0) X10^3/uL RBC (4.0-5.2) X10^6/uL Hgb (12.0-16.0) g/dL Hct (36-46) % MCV (80-100) fL MCH (26-34) PG MCHC (30-36) % RDW (11.6-14.8) % Plt Count (150-400) X10^3/uL Neut % (Auto) Lymph % (Auto) [place] % (Auto) Eos % (Auto) Baso % (Auto) Lymph # (Auto) [place] # (Auto) Baso # (Auto) Total Counted Seg Neutrophils % (38-70) % Band Neutrophils % (3-7) % Lymphocytes % (Manual) (25-45) % Atypical Lymphs % ( - 0) % Monocytes % (Manual) (2-11) % Metamyelocytes % (-0) % Neutrophils # (Manual) (8919-3445) /uL Differential Comment RBC Morphology Polychromasia Macrocytosis Smear Path Review PT (10.1-12.7) SECONDS INR (0.9-1.3) APTT (26.4-36.2) SECONDS Sodium (137-145) mmol/L Potassium (3.4-5.1) mmol/L Chloride (98-107) mmol/L Carbon Dioxide (22-32) mmol/L BUN (7-17) mg/dL Creatinine Cancelled Estimated GFR Cancelled BUN/Creatinine Ratio (6-22) Glucose (80-110) mg/dL Lactate (0.7-2.1) mmol/L Calcium (8.4-10.2) mg/dL Magnesium 2.0 (1.6-2.3) mg/dL Total Bilirubin (0.2-1.3) mg/dL AST (14-36) IU/L ALT (<35) IU/L Alkaline Phosphatase (38-126) U/L Total Creatine Kinase 254 H (30-135) U/L CK-MB (CK-2) 2.13 (<2.37) ng/mL CK-MB (CK-2) Rel Index 0.8 L (1.5-5.0) % Troponin I 0.162 H* (0.01-0.034) ng/mL NT-Pro-B Natriuret Pep 2960 H (<125) pg/mL Total Protein (6.3-8.2) g/dL Albumin (3.5-5.0) g/dL Globulin (1.7-4.1) g/dL Albumin/Globulin Ratio (1.0-2.8) Lipase 35 (23-300) U/L SARS-CoV-2 (PCR) Negative (Negative) 11/19/21 11/19/21 11/19/21 Range/Units 13:00 15:00 15:00 WBC 7.7 (4.5-11.0) X10^3/uL RBC 2.86 L (4.0-5.2) X10^6/uL Hgb 10.3 L (12.0-16.0) g/dL Hct 29.1 L (36-46) % MCV 101.8 H (80-100) fL MCH 36.1 H (26-34) PG MCHC 35.4 (30-36) % RDW 16.2 H (11.6-14.8) % Plt Count 81 L (150-400) X10^3/uL Neut % (Auto) Not Reportable Lymph % (Auto) Not Reportable [place] % (Auto) Not Reportable Eos % (Auto) Not Reportable Baso % (Auto) Not Reportable Lymph # (Auto) Not Reportable [place] # (Auto) Not Reportable Baso # (Auto) Not Reportable Total Counted 100 Seg Neutrophils % 22.0 L (38-70) % Band Neutrophils % 13.0 H (3-7) % Lymphocytes % (Manual) 10.0 L (25-45) % Atypical Lymphs % 1.0 H ( - 0) % Monocytes % (Manual) 53.0 H (2-11) % Metamyelocytes % 1.0 H (-0) % Neutrophils # (Manual) 2695 L (3979-4140) /uL Differential Comment Note RBC Morphology See below Polychromasia 1+ H Macrocytosis 1+ H Smear Path Review PT (10.1-12.7) SECONDS INR (0.9-1.3) APTT (26.4-36.2) SECONDS Sodium 128 L (137-145) mmol/L Potassium 3.5 (3.4-5.1) mmol/L Chloride 94 L (98-107) mmol/L Carbon Dioxide 25 (22-32) mmol/L BUN 22 H (7-17) mg/dL Creatinine 0.79 Estimated GFR > 60.0 BUN/Creatinine Ratio 27.8 H (6-22) Glucose 127 H (80-110) mg/dL Lactate 1.4 (0.7-2.1) mmol/L Calcium 9.0 (8.4-10.2) mg/dL Magnesium (1.6-2.3) mg/dL Total Bilirubin 1.5 H (0.2-1.3) mg/dL AST 94 H (14-36) IU/L ALT 97 H (<35) IU/L Alkaline Phosphatase 79 (38-126) U/L Total Creatine Kinase (30-135) U/L CK-MB (CK-2) (<2.37) ng/mL CK-MB (CK-2) Rel Index (1.5-5.0) % Troponin I (0.01-0.034) ng/mL NT-Pro-B Natriuret Pep (<125) pg/mL Total Protein 7.1 (6.3-8.2) g/dL Albumin 4.0 (3.5-5.0) g/dL Globulin 3.1 (1.7-4.1) g/dL Albumin/Globulin Ratio 1.3 (1.0-2.8) Lipase (23-300) U/L SARS-CoV-2 (PCR) (Negative) 11/19/21 11/19/21 11/19/21 Range/Units 15:00 15:00 17:23 WBC (4.5-11.0) X10^3/uL RBC (4.0-5.2) X10^6/uL Hgb (12.0-16.0) g/dL Hct (36-46) % MCV (80-100) fL MCH (26-34) PG MCHC (30-36) % RDW (11.6-14.8) % Plt Count (150-400) X10^3/uL Neut % (Auto) Lymph % (Auto) [place] % (Auto) Eos % (Auto) Baso % (Auto) Lymph # (Auto) [place] # (Auto) Baso # (Auto) Total Counted Seg Neutrophils % (38-70) % Band Neutrophils % (3-7) % Lymphocytes % (Manual) (25-45) % Atypical Lymphs % ( - 0) % Monocytes % (Manual) (2-11) % Metamyelocytes % (-0) % Neutrophils # (Manual) (6192-0220) /uL Differential Comment RBC Morphology Polychromasia Macrocytosis Smear Path Review PT 16.8 H (10.1-12.7) SECONDS INR 1.5 H (0.9-1.3) APTT 31 (26.4-36.2) SECONDS Sodium (137-145) mmol/L Potassium (3.4-5.1) mmol/L Chloride (98-107) mmol/L Carbon Dioxide (22-32) mmol/L BUN (7-17) mg/dL Creatinine Estimated GFR BUN/Creatinine Ratio (6-22) Glucose (80-110) mg/dL Lactate (0.7-2.1) mmol/L Calcium (8.4-10.2) mg/dL Magnesium (1.6-2.3) mg/dL Total Bilirubin (0.2-1.3) mg/dL AST (14-36) IU/L ALT (<35) IU/L Alkaline Phosphatase (38-126) U/L Total Creatine Kinase (30-135) U/L CK-MB (CK-2) (<2.37) ng/mL CK-MB (CK-2) Rel Index (1.5-5.0) % Troponin I 0.212 H* (0.01-0.034) ng/mL NT-Pro-B Natriuret Pep 3010 H (<125) pg/mL Total Protein (6.3-8.2) g/dL Albumin (3.5-5.0) g/dL Globulin (1.7-4.1) g/dL Albumin/Globulin Ratio (1.0-2.8) Lipase (23-300) U/L SARS-CoV-2 (PCR) (Negative) 11/19/21 11/19/21 11/20/21 Range/Units 22:30 23:30 04:33 WBC (4.5-11.0) X10^3/uL RBC (4.0-5.2) X10^6/uL Hgb (12.0-16.0) g/dL Hct (36-46) % MCV (80-100) fL MCH (26-34) PG MCHC (30-36) % RDW (11.6-14.8) % Plt Count (150-400) X10^3/uL Neut % (Auto) Lymph % (Auto) [place] % (Auto) Eos % (Auto) Baso % (Auto) Lymph # (Auto) [place] # (Auto) Baso # (Auto) Total Counted Seg Neutrophils % (38-70) % Band Neutrophils % (3-7) % Lymphocytes % (Manual) (25-45) % Atypical Lymphs % ( - 0) % Monocytes % (Manual) (2-11) % Metamyelocytes % (-0) % Neutrophils # (Manual) (7948-3954) /uL Differential Comment RBC Morphology Polychromasia Macrocytosis Smear Path Review PT (10.1-12.7) SECONDS INR (0.9-1.3) APTT 57 H D 40 H D (26.4-36.2) SECONDS Sodium (137-145) mmol/L Potassium (3.4-5.1) mmol/L Chloride (98-107) mmol/L Carbon Dioxide (22-32) mmol/L BUN (7-17) mg/dL Creatinine Estimated GFR BUN/Creatinine Ratio (6-22) Glucose (80-110) mg/dL Lactate (0.7-2.1) mmol/L Calcium (8.4-10.2) mg/dL Magnesium (1.6-2.3) mg/dL Total Bilirubin (0.2-1.3) mg/dL AST (14-36) IU/L ALT (<35) IU/L Alkaline Phosphatase (38-126) U/L Total Creatine Kinase (30-135) U/L CK-MB (CK-2) (<2.37) ng/mL CK-MB (CK-2) Rel Index (1.5-5.0) % Troponin I 2.170 H* (0.01-0.034) ng/mL NT-Pro-B Natriuret Pep (<125) pg/mL Total Protein (6.3-8.2) g/dL Albumin (3.5-5.0) g/dL Globulin (1.7-4.1) g/dL Albumin/Globulin Ratio (1.0-2.8) Lipase (23-300) U/L SARS-CoV-2 (PCR) (Negative) 11/20/21 11/20/21 11/20/21 Range/Units 04:33 10:05 10:05 WBC 7.3 (4.5-11.0) X10^3/uL RBC 2.68 L (4.0-5.2) X10^6/uL Hgb 9.7 L (12.0-16.0) g/dL Hct 27.1 L (36-46) % MCV 101.0 H (80-100) fL MCH 36.2 H (26-34) PG MCHC 35.9 (30-36) % RDW 16.3 H (11.6-14.8) % Plt Count 83 L (150-400) X10^3/uL Neut % (Auto) Not Reportable Lymph % (Auto) Not Reportable [place] % (Auto) Not Reportable Eos % (Auto) Not Reportable Baso % (Auto) Not Reportable Lymph # (Auto) Not Reportable [place] # (Auto) Not Reportable Baso # (Auto) Not Reportable Total Counted 100 Seg Neutrophils % 34.0 L D (38-70) % Band Neutrophils % 2.0 L (3-7) % Lymphocytes % (Manual) 3.0 L (25-45) % Atypical Lymphs % 8.0 H ( - 0) % Monocytes % (Manual) 53.0 H (2-11) % Metamyelocytes % (-0) % Neutrophils # (Manual) 2628 L (2359-9067) /uL Differential Comment RBC Morphology Not Reportable Polychromasia Macrocytosis 1+ H Smear Path Review PT (10.1-12.7) SECONDS INR (0.9-1.3) APTT (26.4-36.2) SECONDS Sodium 125 L (137-145) mmol/L Potassium 3.4 (3.4-5.1) mmol/L Chloride 91 L (98-107) mmol/L Carbon Dioxide 27 (22-32) mmol/L BUN 28 H (7-17) mg/dL Creatinine 1.00 Estimated GFR 54.5 L BUN/Creatinine Ratio 28.0 H (6-22) Glucose 135 H (80-110) mg/dL Lactate (0.7-2.1) mmol/L Calcium 8.5 (8.4-10.2) mg/dL Magnesium (1.6-2.3) mg/dL Total Bilirubin 1.3 (0.2-1.3) mg/dL AST 101 H (14-36) IU/L ALT 90 H (<35) IU/L Alkaline Phosphatase 108 (38-126) U/L Total Creatine Kinase 465 H D (30-135) U/L CK-MB (CK-2) 21.30 H D (<2.37) ng/mL CK-MB (CK-2) Rel Index 4.6 (1.5-5.0) % Troponin I 7.470 H* 14.000 H* (0.01-0.034) ng/mL NT-Pro-B Natriuret Pep 3790 H (<125) pg/mL Total Protein 6.5 (6.3-8.2) g/dL Albumin 3.5 (3.5-5.0) g/dL Globulin 3.0 (1.7-4.1) g/dL Albumin/Globulin Ratio 1.2 (1.0-2.8) Lipase (23-300) U/L SARS-CoV-2 (PCR) (Negative) 11/20/21 Range/Units 10:30 WBC (4.5-11.0) X10^3/uL RBC (4.0-5.2) X10^6/uL Hgb (12.0-16.0) g/dL Hct (36-46) % MCV (80-100) fL MCH (26-34) PG MCHC (30-36) % RDW (11.6-14.8) % Plt Count (150-400) X10^3/uL Neut % (Auto) Lymph % (Auto) [place] % (Auto) Eos % (Auto) Baso % (Auto) Lymph # (Auto) [place] # (Auto) Baso # (Auto) Total Counted Seg Neutrophils % (38-70) % Band Neutrophils % (3-7) % Lymphocytes % (Manual) (25-45) % Atypical Lymphs % ( - 0) % Monocytes % (Manual) (2-11) % Metamyelocytes % (-0) % Neutrophils # (Manual) (0404-8509) /uL Differential Comment RBC Morphology Polychromasia Macrocytosis Smear Path Review PT (10.1-12.7) SECONDS INR (0.9-1.3) APTT 63 H D (26.4-36.2) SECONDS Sodium (137-145) mmol/L Potassium (3.4-5.1) mmol/L Chloride (98-107) mmol/L Carbon Dioxide (22-32) mmol/L BUN (7-17) mg/dL Creatinine Estimated GFR BUN/Creatinine Ratio (6-22) Glucose (80-110) mg/dL Lactate (0.7-2.1) mmol/L Calcium (8.4-10.2) mg/dL Magnesium (1.6-2.3) mg/dL Total Bilirubin (0.2-1.3) mg/dL AST (14-36) IU/L ALT (<35) IU/L Alkaline Phosphatase (38-126) U/L Total Creatine Kinase (30-135) U/L CK-MB (CK-2) (<2.37) ng/mL CK-MB (CK-2) Rel Index (1.5-5.0) % Troponin I (0.01-0.034) ng/mL NT-Pro-B Natriuret Pep (<125) pg/mL Total Protein (6.3-8.2) g/dL Albumin (3.5-5.0) g/dL Globulin (1.7-4.1) g/dL Albumin/Globulin Ratio (1.0-2.8) Lipase (23-300) U/L SARS-CoV-2 (PCR) (Negative) MDM Narrative Medical decision making narrative: 71-year-old woman with no significant medical history last night with shortness of breath no chest pain global weakness enough that she had difficulty getting off the floor in the bathroom. Equivocal EKG and labs notable for troponin positive at 0.162 Additional lab abnormalities suggest mild anemia 18 months ago hemoglobin and hematocrit were 14.4 and 42.7 and today are 10.3 and 29.1. Patient gives no description of excessive bleeding, black stools or vomiting blood. Sodium is low at 128 total bili is elevated at 1.5 with mildly elevated AST ALT which she has been following. 4:23 when elevated troponin is reviewed, patient is re-examined. She continues to be pain-free mildly dyspneic at rest and continues to complain that her lower extremities are weak. EKG is sent to [facility] reviewed with ER doctor who will view with STEMI doctor to see if we should activate STEMI protocol. In the meantime we will begin heparin. [address] Alberto, interventionalist tube skiver at [facility] this evening. She did not feel this met STEMI equivalent. Will continue with treatment for NSTEMI and will begin looking for bed availability. Dr adams: Received turned over. Reviewed patient's history and physical exam. Performed my own independent exam. Patient continues to be chest pain-free. Is not hypotensive. Not tachycardic. Has been on a heparin drip. Attempted to contact multiple facilities however there is no bed availability. I did talk with Dr. Dc with cardiology at the [facility]. He agreed that the patient did need further testing with cardiac catheterization. A CT scan was ordered since the patient was going to be here in the emergency department for an extended period of time. This CTA did not show any signs of pulmonary embolism. During her time here repeat EKGs continued to be unchanged from prior. Her troponin continues to elevate. I did recontact [facility] to update them on her rising troponins. The EKGs were sent to their facility to upload into their system. Echocardiogram ordered for this morning at the patient is still here in the emergency department. We will continue to monitor the patient an provide medical management of her non ST elevation IA until patient can be transferred to higher level of care. Care turned over to Dr. Nazario to continue to treat and disposition. Over the course of the day patient was doing very well despite slightly worsening EKG in same distribution pattern, and trope rising to 14. 1 hour prior to ground transport arrival patient developed significant chest pain and began to look ill, repeat EKGs demonstrate a subtle worsening of her widespread ST elevation and MN depressions in most leads. Her pain was nearly completely controlled after 3 nitro and patient was placed on nitro drip. Call was placed to Cardiology who agreed patient would need to go to offset label rewinder emergently, they agreed to receive patient by air medical transport. [facility] was contacted and they are grounded due to weather. Given patient's worsening condition it is my opinion the patient is not appropriate to transport by ground that far. I called Interventional Cardiology at [facility] and we agreed that STEMI activation is most appropriate. [facility] notified of the change and we thank them for their continued assistance. Patient was made aware of the change. She understands the need for transfer and the change in plan. She agrees with this plan and has had her questions answered to her apparent satisfaction <Donovan Nazario, DO - Last Filed: 11/20/21 18:16> Critical Care Time Critical Care Time: Yes Total Critical Care Time: 60 Attestation: The high probability of a clinically significant, sudden or life threatening deterioration of the [CV] system(s) required my full and direct attention, intervention and personal management. The aggregate critical care time was [60] minutes. This time is in addition to time spent performing reported procedures but includes the following: [x] Data Review and interpretation [x] Patient assessment and monitoring of vital signs [x] Documentation []x Medication orders and management Discharge Plan Departure Patient Disposition: [facility] Clinical Impression: Acute non-ST elevation myocardial infarction (NSTEMI), Acute anemia, Acute hyponatremia Prescriptions: No Action cyclobenzaprine 10 mg tablet 10 mg PO BEDTIME 0RF colchicine 0.6 mg tablet 0.6 mg PO BID 0RF Label Comments: 11/22/21 TAKE FOR 3 MONTHS famotidine 20 mg tablet 20 mg PO BID 0RF Label Comments: 11/22/21 TAKE FOR 7 DAYS ibuprofen 800 mg tablet 800 mg PO TID Qty: 90 3RF Myrbetriq 50 mg tablet extended release 24 hr 50 mg PO BEDTIME 0RF Referrals: Nikolas Vo MD [Primary Care Provider] - ED Sign-out <Lashon Morocho MD - Last Filed: 12/08/21 13:32> Cosign ED Attending Marilyn Attestation: I was immediately available in the department for consultation throughout this patient's visit. I agree with documentation as above. Lashon Morocho MD
[2021-11-19 16:01] LABS: Macrocytosis 1+; Neutrophils Absolute Manual 2695 /uL (3000-5900); Polychromasia 1+; Total Cells Counted 100
[2021-11-19 16:03] LABS: Morphology Comment NOTE
[2021-11-19 16:07] LABS: INR 1.5 (0.9-1.3); Prothrombin Time 16.8 SECONDS (10.1-12.7)
[2021-11-19] MEDS: HEPARIN 5,000 UNIT/ML VIAL 5000 UNIT IV (16:09)
[2021-11-19 16:10] LABS: PTT Partial Thromboplastin Tim 31 SECONDS (26.4-36.2)
[2021-11-19] MEDS: HEPARIN DRIP 25,000 UNIT/500 ML IV.SOLN 17.636 UNIT IV (16:13)
[2021-11-19 16:15] LABS: NT-proBNP (BNP-Adult 18+) 3010 pg/mL (<125)
[2021-11-19 16:23] LABS: Troponin I 0.162 ng/mL (0.01-0.034)
[2021-11-19 18:03] LABS: Troponin I 0.212 ng/mL (0.01-0.034)
[2021-11-19] MEDS: ASPIRIN 81 MG CHEW TAB 324 MG PO (18:39)
[2021-11-19] MEDS: FUROSEMIDE 40 MG/4 ML VIAL IV (19:50)
--- NOTE | 2021-11-19 20:02 | DI.CT.S_ITS ---
PROCEDURE: CT ANGIO CHEST PE PROTOCOL INDICATIONS: eval for PE. TECHNIQUE: After the administration of intravenous contrast, 2 mm thick sections acquired from the pulmonary apices to the posterior costophrenic angles. 3-dimensional maximum intensity projection (MIP) coronal and sagittal reformats were then acquired through the thorax. For radiation dose reduction, the following was used: automated exposure control, adjustment of mA and/or kV according to patient size. COMPARISON: [facility], CR, XR CHEST 2V, 11/19/2021, 16:26. FINDINGS: Image quality: Excellent. Pulmonary arteries: Pulmonary arteries are normal in size, and demonstrate no intraluminal filling defects to suggest central pulmonary embolism. Lungs and pleura: There is dependent atelectasis bilaterally. No acute consolidation. No pleural effusions or pneumothorax. Central and peripheral airways are patent. Mediastinum: Heart size is normal, with a small pericardial effusion. No mediastinal or hilar adenopathy. Thoracic aorta is normal in caliber and enhancement. Esophagus is normal in caliber, without hiatal hernia. Bones and chest wall: No suspicious bony lesions. Ribs and thoracic spine appear intact throughout. Thyroid gland is heterogeneous in appearance with multiple small nodules, measuring to 1.2 cm in the right lobe. No axillary or supraclavicular adenopathy. Abdomen: Visualized upper abdominal solid organs appear normal in the early arterial phase of enhancement. IMPRESSION: 1. No evidence of pulmonary embolism. 2. Dependent atelectasis in the lungs without acute consolidation. Dictated by: Navin Mitchell M.D. on 11/19/2021 at 21:13 Approved by: Navin Mitchell M.D. on 11/19/2021 at 21:21
[2021-11-19 22:48] LABS: PTT Partial Thromboplastin Tim 57 SECONDS (26.4-36.2)
--- NOTE | 2021-11-19 23:14 | DI.ECHO.S_ITS ---
[facility] [facility]---------+ [facility] +---------+ : : [address] : : : : [id number] : : : : Phone: [phone] Echocardiogram Report + + :Name: JENNIFER URIAS Study Date: 11/20/2021 Height: 63 in : :[facility] ReadingLocation: Weight: 162 lb : : Gender: Female BSA: 1.8 m2 : :: 1950 Age: 71 yrs BP: 106/50 mmHg: :Reason For Study: NSTEMI : :Ordering Physician: CLARA, : :HOLA Performed By: Alisa Alvarado : :Referring: HOLA ELIZABETH : + + Interpretation Summary The left ventricle is normal in size. Left ventricular ejection fraction is estimated to be 65 +/- 5%. The right ventricle is normal in size and function. There is moderate mitral regurgitation. There is moderate tricuspid regurgitation. The right ventricular systolic pressure is estimated to be at least 36 mmHg based on an estimated right atrial pressure of 8 mm Hg. There is mild luminal irregularity and echogenicity in the abdominal aorta, suggestive of aortic atherosclerotic disease. Mild atherosclerotic plaque(s) in the descending aorta. Procedure: A two-dimensional transthoracic echocardiogram with color flow and Doppler was performed. The study quality was technically adequate. There is no prior echocardiogram noted for this patient. The patient was in sinus tachycardia with heart rates between 90-111 bpm during the exam. The patient had frequent PACs during the exam. Left Ventricle: The left ventricle is normal in size. There is mild concentric left ventricular hypertrophy. There is no thrombus. Left ventricular ejection fraction is estimated to be 65 +/- 5%. There are no focal wall motion abnormalities. Diastolic function could not be accurately assessed due to tachycardia. E/E' med: 15.7. Right Ventricle: The right ventricle is normal in size and function. Atria: The left atrial size is normal. Right atrial size is normal. There is no Doppler evidence for an interatrial shunt. Mitral Valve: The mitral valve leaflets appear mildly thickened, but open well. There is mild mitral annular calcification. There is moderate mitral regurgitation. Aortic Valve: The aortic valve is trileaflet. The aortic valve opens well. There is no aortic valve stenosis. No aortic regurgitation is present. Tricuspid Valve: The tricuspid valve is normal. There is moderate tricuspid regurgitation. The right ventricular systolic pressure is estimated to be at least 36 mmHg based on an estimated right atrial pressure of 8 mm Hg. Pulmonic Valve: The pulmonic valve is not well visualized. Great Vessels: The aortic root is normal size. The ascending aorta could not be visualized. There is mild luminal irregularity and echogenicity in the abdominal aorta, suggestive of aortic atherosclerotic disease. Mild atherosclerotic plaque(s) in the descending aorta. The IVC is of normal diameter and collapses less than 50% with a sniff. This suggests a right atrial pressure of 8 mm Hg. Pericardium/ Pleura There is a trivial pericardial effusion noted. There are no echocardiographic indications of cardiac tamponade. There is an anterior echo-free space consistent with a fat pad. There is no pleural effusion. MMode/2D Measurements & Calculations LVIDd: 4.5 cm LVOT diam: 2.0 cm LVIDs: 2.8 cm Ao root diam: 2.8 cm FS: 38.2 % Ao Arch Diam (Prox Trans): 2.4 cm IVSd: 1.0 cm LVPWd: 1.1 cm LV larios. diameter/BSA (cm/m^2): 2.5 LV sys. diameter/BSA (cm/m^2): 1.6 LA A2 area: 21.6 cm2 RA long axis: 4.9 cm LA A4 area: 17.8 cm2 RA area: 14.4 cm2 LA length (vol): 5.6 cm RA vol: 35.6 ml LA vol: 58.6 ml RA : 20.1 ml/m2 LA vol index: 33.1 ml/m2 IVC diam: 1.6 cm RVD1 (basal): 3.5 cm RV Mid_phl: 2.9 cm TAPSE: 2.3 cm Doppler Measurements & Calculations Ao V2 max: 135.2 cm/sec LVOT Max Lisandro: 100.3 cm/sec Ao V2 mean: 97.5 cm/sec LV V1 max P.0 mmHg Ao max P.3 mmHg LV V1 VTI: 16.0 cm Ao mean P.2 mmHg LUIS(I,D): 2.2 cm2 Ao V2 VTI: 22.0 cm LUIS(V,D): 2.3 cm2 sev ratio: 0.73 LUIS indexed to BSA (cm^2/m^2): 1.3 MV E max lisandro: 107.0 cm/sec TR max lisandro: 263.6 cm/sec MV A max lisandro: 1.7 cm/sec TR max P.8 mmHg MV E/A: 64.4 PA pr(Accel): 46.5 mmHg Med Peak E' Lisandro: 6.8 cm/sec E/E' med: 15.7 Lat Peak E' Lisandro: 7.6 cm/sec E/E' lat: 14.1 E/e' average: 14.9 MV dec time: 0.19 sec MR ERO: 0.16 cm2 MR PISA: 2.4 cm2 SV(LVOT): 49.4 ml MR flow rate: 83.8 cm3/sec MR PISA radius: 0.62 cm Reading Physician:10:02 AM
[2021-11-20] VITALS (86 sets, daily range): BP systolic 88–142; BP diastolic 47–83; PULSE 86–111; RESP 0–46; O2SAT 87–98
[2021-11-20 04:51] LABS: PTT Partial Thromboplastin Tim 40 SECONDS (26.4-36.2)
[2021-11-20 11:24] LABS: Add Manual Diff / Slide Review YES; Hematocrit 27.1 % (36-46); Hemoglobin 9.7 g/dL (12.0-16.0); Mean Corpuscular HGB Conc 35.9 % (30-36); Mean Corpuscular Hemoglobin 36.2 PG (26-34); Platelet Count 83 X10^3/uL (150-400); Red Blood Cell Count 2.68 X10^6/uL (4.0-5.2); Red Cell Distribution Width 16.3 % (11.6-14.8); White Blood Cell Count 7.3 X10^3/uL (4.5-11.0)
[2021-11-20 11:31] LABS: PTT Partial Thromboplastin Tim 63 SECONDS (26.4-36.2)
--- NOTE | 2021-11-20 11:38 | PC.NURSE ---
Upon arrival @ 0900. Pt moved to chair for comfort. Obtained regular hospital bed. Unable to walk/ transfer w/o significant shortness of breath. C/o persistant nausea (Aravind Simpson awarebut tolerating po fluids. BS w/ bibasliar crackles. Denies chest pain/ pressure/ back pain/ epigastric pain. Pt is now sleeping. PTT completed, no change indicated in heparin use.
[2021-11-20 11:40] LABS: Macrocytosis 1+; Neutrophils Absolute Manual 2628 /uL (3000-5900); Total Cells Counted 100
[2021-11-20 11:50] LABS: Alanine Aminotransferase 90 IU/L (<35); Albumin 3.5 g/dL (3.5-5.0); Albumin Globulin Ratio 1.2 (1.0-2.8); Alkaline Phosphatase 108 U/L (38-126); Aspartate Aminotransferase 101 IU/L (14-36); Bilirubin Total 1.3 mg/dL (0.2-1.3); Blood Urea Nitrogen 28 mg/dL (7-17); Calcium 8.5 mg/dL (8.4-10.2); Carbon Dioxide 27 mmol/L (22-32); Chloride 91 mmol/L (98-107); Creatine Kinase 465 U/L (30-135); Estimated Glomerular Filt Rate 54.5 mL/min (>60); Glucose 135 mg/dL (80-110); HEMOLYSIS < 15 (0-50); Potassium 3.4 mmol/L (3.4-5.1); Sodium 125 mmol/L (137-145); Total Protein 6.5 g/dL (6.3-8.2)
[2021-11-20 12:01] LABS: NT-proBNP (BNP-Adult 18+) 3790 pg/mL (<125)
[2021-11-20 12:08] LABS: CKMB % Relative Index 4.6 % (1.5-5.0)
[2021-11-20] MEDS: NITROGLYCERIN 0.4 MG SL TAB SL ×3 (15:48→16:05)
[2021-11-20] MEDS: HEPARIN DRIP 25,000 UNIT/500 ML IV.SOLN 18.6 UNIT IV (15:59)
[2021-11-20] MEDS: KETOROLAC 30 MG/ML VIAL 15 MG IV (16:03)
[2021-11-20] MEDS: NITROGLYCERIN 50 MG/250 ML INFUS..BTL IV (16:15)
== END 2021-11-20 16:58 | disposition short-term general hospital (02) ==
PROVIDERS: Emergency Medicine; Emergency Provider Emergency Medicine; PCP Family Medicine
DX: I21.4 Non-ST elevation (NSTEMI) myocardial infarction (principal); D64.9 Anemia, unspecified; E87.1 Hypo-osmolality and hyponatremia; Z20.822 Contact with and (suspected) exposure to COVID-19
CPT/HCPCS: 36415; 71046; 71275; 80053; 82550; 82553; 83605; 83690; 83735; 83880; 84484; 85007; 85025; 85610; 85730; 87635; 93005; 93010; 93306; 96365; 96366; 96375; 99285; 99291; C9803; J1644; J1885; J1940; Q9967

== ENCOUNTER → 2021-11-25 11:44 | Outpatient (CLI) | payer MEDICARE, OTHER, SELFPAY ==
[2021-11-25 13:37] LABS: Mean Corpuscular HGB Conc 34.6 % (30-36); Mean Corpuscular Hemoglobin 36.2 PG (26-34); Mean Corpuscular Volume 104.7 fL (80-100); Platelet Count 91 X10^3/uL (150-400); Red Blood Cell Count 2.24 X10^6/uL (4.0-5.2); Red Cell Distribution Width 16.4 % (11.6-14.8); White Blood Cell Count 5.3 X10^3/uL (4.5-11.0)
[2021-11-25 13:49] LABS: Add Manual Diff / Slide Review YES; Hematocrit 23.4 % (36-46); Hemoglobin 8.1 g/dL (12.0-16.0)
[2021-11-25 14:08] LABS: Alanine Aminotransferase 105 IU/L (<35); Albumin Globulin Ratio 1.2 (1.0-2.8); Alkaline Phosphatase 159 U/L (38-126); Aspartate Aminotransferase 33 IU/L (14-36); BUN Creatinine Ratio 30.3 (6-22); Bilirubin Total 0.6 mg/dL (0.2-1.3); Blood Urea Nitrogen 27 mg/dL (7-17); Calcium 8.6 mg/dL (8.4-10.2); Carbon Dioxide 23 mmol/L (22-32); Chloride 105 mmol/L (98-107); Creatine Kinase 83 U/L (30-135); Estimated Glomerular Filt Rate > 60.0 mL/min (>60); Globulin 2.5 g/dL (1.7-4.1); Glucose 105 mg/dL (80-110); HEMOLYSIS < 15 (0-50); Lipase 149 U/L (23-300); Sodium 136 mmol/L (137-145); Total Protein 5.5 g/dL (6.3-8.2)
[2021-11-25 14:21] LABS: Neutrophils Absolute Manual 1325 /uL (3000-5900); Total Cells Counted 100
[2021-11-25 14:24] LABS: Macrocytosis 1+
[2021-11-25 14:28] LABS: Anisocytosis 1+
[2021-11-25 14:46] LABS: Troponin I 0.175 ng/mL (0.01-0.034)
== END ==
PROVIDERS: PCP Family Medicine; Referring Provider Family Medicine; Visit Provider Family Medicine
DX: D64.9 Anemia, unspecified (principal); E87.1 Hypo-osmolality and hyponatremia; R74.8 Abnormal levels of other serum enzymes
CPT/HCPCS: 36415; 80053; 82550; 83690; 84484; 85007; 85025